=== PATIENT | male | born 1935 | race Caucasian/White ===

== ENCOUNTER 2024-03-27 13:22 | Outpatient (CLI) | payer MEDICARE, OTHER, SELFPAY ==
[2024-03-27 21:05] LABS: Prothrombin Time 24.3 Seconds (11.1-14.7)
== END 2024-03-27 13:23 | disposition home or self-care (01) ==
LOC: ANHGOSHLAB 13:24
PROVIDERS: PCP Family Medicine; Visit Provider Family Medicine
DX: Z79.01 Long term (current) use of anticoagulants (principal)
CPT/HCPCS: 36415; 85610

== ENCOUNTER 2024-07-16 14:37 | Inpatient (IN) | payer MEDICARE, OTHER, SELFPAY ==
[2024-07-16] VITALS (37 sets, daily range): BP systolic 73–117; BP diastolic 54–98; PULSE 80–148; RESP 11–33; TEMP 36.9; O2SAT 79–100
--- NOTE | ~2024-07-16 | US_ITS ---
EXAMINATION: US venous doppler [facility] DATE: 07/16/2024 15:57 INDICATION: Lower limb swelling. TECHNIQUE: Grayscale ultrasound images without and with compression and Doppler ultrasound images of the bilateral lower extremity veins were obtained. COMPARISON: None. FINDINGS: The visualized portions of right common femoral vein, profunda (deep) femoral vein, femoral vein, pop liteal vein, posterior tibial veins, peroneal veins, gastrocnemius vein and greater saphenous vein ou tflow are patent. The visualized portions of left common femoral vein, profunda femoral vein, femoral vein, popliteal v ein, posterior tibial veins, peroneal veins, gastrocnemius vein and greater saphenous vein outflow ar e patent. IMPRESSION: 1. No deep venous thrombosis in either lower limb. Reviewed, dictated and finalized at location A.
--- NOTE | ~2024-07-16 | XR_ITS ---
XR chest 1V portable 07/16/2024 15:08 Indication: Shortness of breath. Atrial fibrillation. Procedure: AP portable chest Comparison: No prior studies for comparison. Findings: Cardiomegaly with interstitial edema. Small pleural effusions. No pneumothorax. No acute os seous abnormality. Impression: 1: Cardiomegaly with mild interstitial edema. Reviewed, dictated and finalized at location B. Impression: 1: Cardiomegaly with mild interstitial edema.
--- NOTE | 2024-07-16 14:36 | ECG_ITS ---
Test Date: 2024-07-16 14:36:01 Measurements Intervals [place] Rate: 150 P: 0 HI: 0 QRS: -47 QRSD: 107 T: 124 QT: 298 QTc: 471 Interpretive Statements ATRIAL FLUTTER/TACHYCARDIA WITH RAPID VENTRICULAR RESPONSE LEFT ANTERIOR FASCICULAR BLOCK [QRS AXIS <= -45, QR IN I, RS IN II] POSSIBLE ANTERIOR MYOCARDIAL INFARCTION , OF INDETERMINATE AGE [30 ms Q WAVE IN V3/V4, OR R < 0.2 mV IN V4] INFERIOR MYOCARDIAL INFARCTION , OF INDETERMINATE AGE [40+ ms Q WAVE AND/OR ST/T ABNORMALITY IN II/aVF] ABNORMAL ELECTROCARDIOGRAM No previous ECG available for comparison Electronically Signed On 07-16-2024 18:03:16 CDT by Carlos Ivan M.D.
--- NOTE | 2024-07-16 14:51 | ED.ARRPALP ---
HPI - Arrhythmia/Palpitations General Chief Complaint: Arrhythmia/Palpitations Stated Complaint: afib rvr Time Seen by Provider: 07/16/24 14:41 History of Present Illness HPI narrative: This is an 89-year-old male with a past medical history significant for paroxysmal atrial fibrillation on warfarin, CHF and hyperlipidemia as well as previous prostate cancer. Today patient presents to the emergency department at the request of his primary care provider for concerns of dyspnea and atrial fibrillation with rapid ventricular response. Patient only takes warfarin does not have any kind of calcium channel or beta christopher medications on his regimen. Patient states that he would not have come to the ER if he was not instructed to. He states he does not feel chest pain or any kind of shortness of breath but was reporting shortness of breath at the office today. They initially placed on oxygen but he is saturating well on room air. As any headache, vision changes, nausea, vomiting, abdominal pain, back pain. He states his legs are swollen but states that they appear somewhat normal to him. No history of DVT or PE to his knowledge. Was otherwise in his normal state of health. No recent medication changes but on review of the EMR was taken off of metoprolol in March. Related Data Home Medications Medication Instructions Recorded Confirmed warfarin 3 mg tablet 3 mg PO HS 07/16/24 07/16/24 Allergies Allergy/AdvReac Type Severity Reaction Status Date / Time No Known Allergies Allergy Verified 07/16/24 19:17 Review of Systems Review of Systems: As reviewed above in HPI [facility] Surgical History Surgical History H/O radical prostatectomy 2009 Hx of hernia repair bilat inguinal Family History Family History Father Cerebrovascular accident Sibling Family history of lung cancer, Onset Age: 61 Family history of malignant neoplasm of brain, Onset Age: 80 Social History Social History Smoking status: Former smoker Alcohol intake: never Substance use: never Substance use type: does not use Lack of Transportation: No Lack of Food: Never True Current Housing: I Have Housing Concerned About Future Housing: No Difficulty Paying Gas/Electric Bills: No Difficulty Paying for Meds: No Currently Unemployed: No Education: High School Diploma/GED Difficulty w/ Childcare or Family Care: No Exam Narrative: GENERAL: Well appearing not in acute distress, conversing in full sentences HEAD: [Normocephalic, atraumatic.] EYES: [PERRLA and EOMI.] ENT: Nares clear, no rhinorrhea or epistaxis. Mucous membranes moist. NECK: Supple. CHEST: Some rhonchi appreciated with rales on auscultation but no wheezing, respiratory distress or accessory muscle use HEART: [Regular rate and rhythm]. No murmur heard. [Normal peripheral pulses.] ABDOMEN: [Soft, nondistended], [nontender], [No rigidity or guarding] EXTREMITIES: Normal range of motion. Anasarca to the bilateral lower extremities, pitting SKIN: Warm, dry, no rash. NEURO: [No focal deficits]. Alert and oriented [x3.] PSYCH: [Normal mood and affect.] Course Vital Signs Vital signs: Vital Signs Temperature 36.9 C 07/16/24 14:26 Pulse Rate 148 H 07/16/24 14:26 Respiratory Rate 30 H 07/16/24 14:26 Blood Pressure 104/89 07/16/24 14:26 Pulse Oximetry 93 07/16/24 14:26 Oxygen Delivery Room Air 07/16/24 14:26 Temperature 36.9 C 07/16/24 14:26 Pulse Rate 129 H 07/16/24 18:50 Respiratory Rate 22 H 07/16/24 18:50 Blood Pressure 103/82 07/16/24 18:50 Pulse Oximetry 95 07/16/24 18:50 Oxygen Delivery Room Air 07/16/24 19:13 Oxygen Flow Rate 2 07/16/24 15:34 MDM - Arrhythmia/Palpitations MDM Narrative Medical decision making narrative: This is an 89-year-old male with a history of paroxysmal atrial fibrillation on warfarin but no rate controlling medications. He also has a history of CHF and no medications such as diuretics on review of the EMR. He was sent in by his primary care provider today for difficulty breathing and atrial fibrillation with rapid ventricular response. On arrival patient is resting comfortably on room air but his vitals do show a heart rate between 120-160. It appears to be atrial fibrillation on the monitor with rapid ventricular response. His blood pressure is reassuring and holding and 104/89. He denies any chest pain shortness a breath presently and has no other somatic symptoms at this time besides leg swelling. He states he does not take any diuretics and anything aside from warfarin. He was previously on a beta-christopher on review of the Mar in March. No history of DVT or PE to his knowledge. Given patient's atrial fibrillation with rapid ventricular response and that his blood pressures falling appropriately I believe he can be safely rate controlled with IV diltiazem followed by a infusion rate to control it. EKG is obtained and revealed atrial fibrillation RVR with no ST segment elevations or depressions concerning for acute ischemia. He has bilateral leg swelling but appears to have more swelling on the right side compared to the left. He appears fluid overloaded with his edematous legs, rales on exam and history of CHF. Find his atrial fibrillation RVR is unclear but could be secondary to myocardial stretching from fluid overload, electrolyte derangements, ACS or infectious process. Less likely thrombotic process however we did obtain a D-dimer and ultrasound of his legs. CBC, BMP, LFTs, chest x-ray, EKG and serial troponins were ordered. Diltiazem bolus at approximately 0.25 milligrams/kilogram was ordered followed by drip starting at 5. Workup revealed no leukocytosis or anemia. PT and INR elevated however patient is on warfarin therapy. Electrolyte panel largely within normal limits but a small anion gap of 15 without significant acidosis. Creatinine normal at 1.10. Some BUN elevations of 47 indicative of a minor KYLE or prerenal azotemia. Initial troponin was elevated 0.121, repeat pending. EKG shows no ischemia and this is likely demand ischemia from rapid heart rate and fluid overload. Will trend. Patient has no chest pain at this time. D-dimer is negative, venous Doppler studies were independently reviewed and also negative for acute DVT. Chest x-ray shows fluid overload and cardiomegaly. Patient was provided Lasix for diuretic therapy as I believe his in a CHF exacerbation given his historical features and physical exam findings and this is likely was attributing to his atrial fibrillation being in RVR at this time. He is doing well on diltiazem drip with reassessment showing that his heart rate is being controlled under 110 but still irregular in rhythm. Blood pressure tolerating in the low 100s. He is on room air saturating 95%. At this time patient will benefit from admission to the hospital for continued diuresis and to be evaluated by Cardiology to start him on appropriate medications for his atrial fibrillation and CHF. I discussed the case with the hospitalist FARIHA who accepted the admission at this time to the IMU. Patient and family were agreeable to admission as well. Medical Records Attestation: I reviewed the patient's medical records. Lab Data Attestation: I reviewed the patient's lab results. 07/16/24 14:42 07/16/24 14:42 Labs: Lab Results 07/16/24 07/16/24 07/16/24 Range/Units 14:42 14:59 18:53 WBC 7.7 (4.5-10.0) K/mm3 RBC 5.08 (4.6-6.20) M/mm3 Hgb 17.2 (14.0-18.0) g/dL Hct 51.3 (42.0-52.0) % MCV 101.0 H (80-100) fl MCH 33.9 (26-34) pg MCHC 33.5 (32-36) g/dl RDW 15.2 H (11.5-14.5) % Plt Count 156 (150-375) k/mm3 MPV 12.1 H (7.4-10.4) fl Immature Gran % (Auto) 0.4 (0-0.5) % Neut % (Auto) 79.7 H (45.5-73.1) % Lymph % (Auto) 8.9 L (18.3-44.2) % [place] % (Auto) 10.5 H (2.6-8.5) % Eos % (Auto) 0.0 (0-4.4) % Baso % (Auto) 0.5 (0.2-1.2) % Lymph # (Auto) 0.69 L (0.9-3.2) K/mm3 [place] # (Auto) 0.8 H (0.1-0.6) K/mm3 Eos # (Auto) 0.0 (0-0.3) K/mm3 Baso # (Auto) 0.0 (0.0-0.1) K/mm3 Abs Immat Gran (auto) 0.03 (0.00-0.031) K/mm3 Absolute Neuts (auto) 6.1 (1.3-6.7) K/mm3 Absolute Nucleated RBC 0.000 (0.0-0.012) K/mm3 Nucleated RBC % 0.0 (0.0-0.2) % PT 38.8 H (11.1-14.7) Seconds INR 3.9 APTT 42.8 H (22.3-36.8) Seconds D-Dimer 0.33 (<0.48) ug/mL Sodium 136 L (137-145) mmol/L Potassium 4.8 (3.4-5.0) mmol/L Chloride 100 (98-107) mmol/L Carbon Dioxide 21 L (22-30) mmol/L Anion Gap 15 H (4-12) mmol/L BUN 47 H (9-20) mg/dL Creatinine 1.10 (0.7-1.3) mg/dL Estim Creat Clear Calc 41 ml/min Estimated GFR > 60 (59 - ) Glucose 155 H (65-110) mg/dL Calcium 8.8 (8.4-10.2) mg/dL Total Bilirubin 2.8 H (0.2-1.3) mg/dL AST 47 (17-59) U/L ALT 30 (6-50) U/L Alkaline Phosphatase 77 (38-126) U/L Troponin I 0.121 H* Pending (0.000-0.034) ng/mL Total Protein 7.0 (6.3-8.2) g/dL Albumin 4.0 (3.5-5.1) g/dL Lipase 164 (23-300) U/L Influenza A (RT-PCR) Negative (Negative) Influenza B (RT-PCR) Negative (Negative) SARS-CoV-2 RNA (RT-PCR) Negative (Negative) Imaging Data Attestation: I personally reviewed and interpreted this imaging study as follows: Radiologist's impression: Impressions Chest X-Ray 07/16/24 15:18 Impression: 1: Cardiomegaly with mild interstitial edema. Venous Doppler Study 07/16/24 15:59 IMPRESSION: 1. No deep venous thrombosis in either lower limb. Critical Care Time Critical Care Time Critical Care Time: Yes Total Critical Care Time: 35 Discharge Plan Discharge Clinical Impression: Atrial fibrillation with rapid ventricular response, Acute exacerbation of CHF (congestive heart failure) Patient Disposition: Still a Patient Condition: Stable Prescriptions: No Action warfarin 3 mg tablet 3 mg PO HS Follow-up/Referrals: Yaritza Thayer MD [Primary Care Provider] -
[2024-07-16 14:52] LABS: Basophils Percent Auto 0.5 % (0.2-1.2); Hematocrit 51.3 % (42.0-52.0); Hemoglobin 17.2 g/dL (14.0-18.0); Immature Granulocyte Absolute 0.03 K/mm3 (0.00-0.031); Immature Granulocyte Percent A 0.4 % (0-0.5); Lymphocytes Absolute Auto 0.69 K/mm3 (0.9-3.2); Lymphocytes Percent Auto 8.9 % (18.3-44.2); Mean Corpuscular HGB Conc 33.5 g/dl (32-36); Mean Corpuscular Hemoglobin 33.9 pg (26-34); Mean Platelet Volume 12.1 fl (7.4-10.4); Monocytes Absolute Auto 0.8 K/mm3 (0.1-0.6); Monocytes Percent Auto 10.5 % (2.6-8.5); Neutrophils Absolute Auto 6.1 K/mm3 (1.3-6.7); Neutrophils Percent Auto 79.7 % (45.5-73.1); Platelet Count Result 156 k/mm3 (150-375); Red Blood Count 5.08 M/mm3 (4.6-6.20); Red Cell Distribution Width 15.2 % (11.5-14.5); White Blood Count 7.7 K/mm3 (4.5-10.0)
--- NOTE | 2024-07-16 14:58 | PC.NURSE ---
Dr. Little made aware of pt blood pressure: 95/75. He states to continue medication administration of IVP diltiazem and lasix stat. He states to hold the drip of the diltiazem.
[2024-07-16 15:00] LABS: Alanine Aminotransferase 30 U/L (6-50); Alkaline Phosphatase 77 U/L (38-126); Anion Gap 15 mmol/L (4-12); Aspartate Amino Transferase 47 U/L (17-59); Bilirubin,Total 2.8 mg/dL (0.2-1.3); Blood Urea Nitrogen 47 mg/dL (9-20); Calcium 8.8 mg/dL (8.4-10.2); Carbon Dioxide 21 mmol/L (22-30); Chloride 100 mmol/L (98-107); Estimated CRCL calculation 41 ml/min; Estimated Glomerular Filt Rate > 60; Glucose 155 mg/dL (65-110); Lipase 164 U/L (23-300); Potassium 4.8 mmol/L (3.4-5.0); Sodium 136 mmol/L (137-145)
[2024-07-16] MEDS: dilTIAZem HCl INJ 25 MG/5 ML VIAL 20 MG IV PUSH (15:00)
[2024-07-16] MEDS: FUROSEMIDE INJ 40 MG/4 ML VIAL IV PUSH (15:00)
[2024-07-16] MEDS: dilTIAZem 100 MG/100 ML 100 MG/100 ML BAG IV CONT (15:03)
[2024-07-16 15:08] LABS: INR 3.9; Partial Thromboplastin Time 42.8 Seconds (22.3-36.8); Prothrombin Time 38.8 Seconds (11.1-14.7)
[2024-07-16 15:13] LABS: Troponin I 0.121 ng/mL (0.000-0.034)
[2024-07-16 15:24] LABS: D Dimer 0.33 ug/mL (<0.48)
--- NOTE | 2024-07-16 15:34 | PC.NURSE ---
This RN entered pt room with US at bedside. Pt blood pressure 70/50 and oxygen saturation fluctuating between 88-96%. Diltiazem drip paused. Pt placed on 2L NC. made aware.
[2024-07-16 15:58] LABS: Influenza A QL RT-PCR Negative (Negative); Influenza B QL RT-PCR Negative (Negative); SARS-CoV-2 RNA PCR Negative (Negative)
--- NOTE | 2024-07-16 18:48 | ECG_ITS ---
Test Date: 2024-07-16 19:10:26 Measurements Intervals [place] Rate: 136 P: 0 DE: 0 QRS: -44 QRSD: 108 T: 120 QT: 302 QTc: 454 Interpretive Statements ATRIAL FLUTTER/TACHYCARDIA WITH RAPID VENTRICULAR RESPONSE POSSIBLE ANTERIOR MYOCARDIAL INFARCTION , OF INDETERMINATE AGE [30 ms Q WAVE IN V3/V4, OR R < 0.2 mV IN V4] INFERIOR MYOCARDIAL INFARCTION , OF INDETERMINATE AGE [40+ ms Q WAVE AND/OR ST/T ABNORMALITY IN II/aVF] ABNORMAL ECG Compared to ECG 07/16/2024 14:36:01 NO DIFFERENCE Electronically Signed On 07-18-2024 12:52:27 CDT by Carlos Ivan M.D.
--- NOTE | 2024-07-16 20:08 | P.HP_ITS ---
H&P: HPI History of Present Illness Date/Time: 07/16/24 20:08 Chief Complaint: AFib RVR Narrative: This is an 89-year-old male with a significant past medical history of AFib, prostate cancer, CHF, hyperlipidemia who presents to the hospital with complaints of shortness of breath and AFib with RVR which was found by his primary care physician. According to the family patient has been weak and fatigued over the last 2-3 weeks which became worse over the weekend and reported him to have shallow breathing and easily fatigued with exertion. Patient denies any sick contacts. He denies any fever, chills, nausea, vomiting, diarrhea, abdominal pain, chest pain. He only reports shortness of breath and fatigue. He does state that he is always in AFib and is only been taking Coumadin. He does not take anything for rate control. Workup in the hospital included a chest x-ray which showed cardiomegaly with mild interstitial edema. Venous Doppler study which was negative for DVT and bilateral lower extremities. Initial labs included a normal white blood cell count of 7.7, INR 3.9, D-dimer was negative at 0.33, sodium 136, bicarb 21, total bili 2.8, troponin 0.121 with a repeat pending, lipase was normal. Patient was negative for influenza a and B and RSV. Initial EKG showed atrial flutter with rapid ventricular response with a rate of 150. He was given 20 mg IV push Cardizem and started on IV Cardizem drip while in the ED. He was also given 324 mg of aspirin and Lasix 40 mg IV push. Review of Systems Review of Systems: All systems reviewed & are unremarkable except as noted in HPI and below Constitutional: Constitutional: Reports as per HPI and Reports no additional constitutional complaints Eyes: Eyes: Reports as per HPI and Reports no additional eye complaints ENT: Reports system reviewed and no additional complaints, except as documented and Reports as per HPI Cardiovascular: Cardiovascular: Reports as per HPI and Reports no additional cardiovascular complaints Respiratory: Respiratory: Reports as per HPI and Reports no additional respiratory complaints Gastrointestinal: Gastrointestinal: Reports as per HPI and Reports no additional gastrointestinal complaints Genitourinary: Genitourinary: Reports no additional male genitourinary complaints and Reports as per HPI Musculoskeletal: Musculoskeletal: Reports no additional musculoskeletal complaints and Reports as per HPI Integumentary/Breasts: Skin/Breast: Reports system reviewed and no additional complaints, except as docu and Reports as per HPI Neurologic: Reports system reviewed and no additional complaints, except as documented and Reports as per HPI Psychiatric: Psychiatric: Reports no additional psychiatric complaints and Reports as per HPI [facility] Past Medical History Medical History CHF (congestive heart failure) Surgical History Surgical History H/O radical prostatectomy 2009 Hx of hernia repair bilat inguinal Family History Family History Father Cerebrovascular accident Sibling Family history of lung cancer, Onset Age: 61 Family history of malignant neoplasm of brain, Onset Age: 80 Social History Social History Smoking status: Former smoker Alcohol intake: never Substance use: never Substance use type: does not use Lack of Transportation: No Lack of Food: Never True Current Housing: I Have Housing Concerned About Future Housing: No Difficulty Paying Gas/Electric Bills: No Difficulty Paying for Meds: No Currently Unemployed: No Education: High School Diploma/GED Difficulty w/ Childcare or Family Care: No Meds Home Medications and Allergies Home Medications Medication Instructions Recorded Confirmed Type warfarin 3 mg tablet 3 mg PO HS 07/16/24 07/16/24 History Allergies Allergy/AdvReac Type Severity Reaction Status Date / Time No Known Allergies Allergy Verified 07/16/24 19:17 Vital Signs Vital Signs - 24 hr 07/16/24 14:26 07/16/24 14:41 07/16/24 15:03 Temperature 98.4 F Pulse Rate 148 H 127 H Respiratory Rate 30 H Blood Pressure 104/89 106/87 Pulse Oximetry 93 95 Oxygen Delivery Room Air Room Air Oxygen Flow Rate 07/16/24 14:45 07/16/24 15:02 07/16/24 15:30 Temperature Pulse Rate 123 H 135 H 97 Respiratory Rate 26 H 28 H Blood Pressure 95/75 L 106/87 73/55 L Pulse Oximetry 97 95 Oxygen Delivery Oxygen Flow Rate 07/16/24 15:15 07/16/24 15:34 07/16/24 15:25 Temperature Pulse Rate 104 H 105 H Respiratory Rate 24 H 26 H Blood Pressure 79/58 L 73/54 L Pulse Oximetry 95 97 94 Oxygen Delivery Nasal Cannula Oxygen Flow Rate 2 07/16/24 15:30 07/16/24 15:41 07/16/24 15:41 Temperature Pulse Rate 102 H 102 H 80 Respiratory Rate 30 H 19 30 H Blood Pressure 85/72 L 101/72 Pulse Oximetry 94 99 97 Oxygen Delivery Oxygen Flow Rate 07/16/24 15:21 07/16/24 15:26 07/16/24 15:29 Temperature Pulse Rate 118 H 119 H 116 H Respiratory Rate 27 H 27 H 20 Blood Pressure 73/54 L 85/72 L Pulse Oximetry 91 87 L 79 L Oxygen Delivery Oxygen Flow Rate 07/16/24 15:30 07/16/24 15:45 07/16/24 15:46 Temperature Pulse Rate 86 107 H 83 Respiratory Rate 33 H 33 H 27 H Blood Pressure 111/91 H Pulse Oximetry 95 93 100 Oxygen Delivery Oxygen Flow Rate 07/16/24 16:00 07/16/24 16:01 07/16/24 16:15 Temperature Pulse Rate 101 H 102 H 101 H Respiratory Rate 29 H 27 H 28 H Blood Pressure 99/80 L Pulse Oximetry 98 100 99 Oxygen Delivery Oxygen Flow Rate 07/16/24 16:16 07/16/24 16:17 07/16/24 16:46 Temperature Pulse Rate 103 H 100 113 H Respiratory Rate 31 H 13 21 H Blood Pressure 104/67 97/84 L Pulse Oximetry 96 100 95 Oxygen Delivery Oxygen Flow Rate 07/16/24 17:24 07/16/24 17:31 07/16/24 18:15 Temperature Pulse Rate 98 117 H 109 H Respiratory Rate 14 22 H 27 H Blood Pressure 97/81 L Pulse Oximetry 93 93 98 Oxygen Delivery Oxygen Flow Rate 07/16/24 18:16 07/16/24 18:50 07/16/24 19:13 Temperature Pulse Rate 124 H 129 H Respiratory Rate 22 H 22 H Blood Pressure 110/86 103/82 Pulse Oximetry 94 95 Oxygen Delivery Room Air Oxygen Flow Rate Exam Narrative: General: Fatigued appearance, well nourished Head: atraumatic, no encephalopathy Eyes: EOMI, PERRLA, sclera clear ENT: moist mucous membranes, nasal passages clear Neck: supple, no JVD, no adenopathy, trachea midline Cardiac: Normal S1 and S2. AFib with RVR, No murmur, gallops or friction rubs, peripheral pulses intact. Respiratory: Slightly coarse, crackles in the bases, no adventitious lung sounds, currently on room air Gastrointestinal: soft, non-distended, non-tender, normoactive bowel sounds. Anasarca present : voiding without difficulty. Extremities: moves all extremities well, 4+ pitting edema to bilateral lower extremities good ROM, strength 5/5 Skin: clean, dry, intact. No wounds or lesions. Neuro: Alert and oriented x4, cranial nerves intact, no neuro deficits. Psych: normal mood, normal affect, interactive H&P: Results Labs Labs: Short CBC 07/16/24 Range/Units 14:42 WBC 7.7 (4.5-10.0) K/mm3 Hgb 17.2 (14.0-18.0) g/dL Hct 51.3 (42.0-52.0) % Plt Count 156 (150-375) k/mm3 BMP 07/16/24 14:42 Sodium 136 L Potassium 4.8 Chloride 100 Carbon Dioxide 21 L BUN 47 H Creatinine 1.10 Glucose 155 H Calcium 8.8 Cardiac Enzymes 07/16/24 Range/Units 14:42 Troponin I 0.121 H* (0.000-0.034) ng/mL Liver Function 07/16/24 Range/Units 14:42 Total Bilirubin 2.8 H (0.2-1.3) mg/dL AST 47 (17-59) U/L ALT 30 (6-50) U/L Alkaline Phosphatase 77 (38-126) U/L Albumin 4.0 (3.5-5.1) g/dL Imaging Venous Doppler study: Radiologist's impression: EXAMINATION: US venous doppler [facility] DATE: 07/16/2024 15:57 INDICATION: Lower limb swelling. TECHNIQUE: Grayscale ultrasound images without and with compression and Doppler ultrasound images of the bilateral lower extremity veins were obtained. COMPARISON: None. FINDINGS: The visualized portions of right common femoral vein, profunda (deep) femoral vein, femoral vein, popliteal vein, posterior tibial veins, peroneal veins, gastrocnemius vein and greater saphenous vein outflow are patent. The visualized portions of left common femoral vein, profunda femoral vein, femoral vein, popliteal vein, posterior tibial veins, peroneal veins, gastrocnemius vein and greater saphenous vein outflow are patent. IMPRESSION: 1. No deep venous thrombosis in either lower limb. Reviewed, dictated and finalized at location A. Chest x-ray: Radiologist's impression: XR chest 1V portable 07/16/2024 15:08 Indication: Shortness of breath. Atrial fibrillation. Procedure: AP portable chest Comparison: No prior studies for comparison. Findings: Cardiomegaly with interstitial edema. Small pleural effusions. No pneumothorax. No acute osseous abnormality. Impression: 1: Cardiomegaly with mild interstitial edema. Reviewed, dictated and finalized at location B. Assessment and Plan Assessment and plan (1) Acute exacerbation of CHF (congestive heart failure): Code(s): I50.9 - Heart failure, unspecified Status: Acute Assessment and Plan: 07/16/24: * Patient came in with shortness of breath, AFib RVR, 4+ pitting edema, anasarca, and fatigue * He was given 40 mg IV push Lasix while in the ED * Cardiology consulted * Obtain echocardiogram * Will need further diuresis with Lasix * Venous Doppler study negative for DVT * Chest x-ray showing cardiomegaly with mild interstitial edema * Strict intake and output * Fluid restriction * Heart healthy diet * Daily weight (2) Atrial fibrillation with rapid ventricular response: Code(s): I48.91 - Unspecified atrial fibrillation Status: Acute Assessment and Plan: 07/16/24: * EKG showing AFib/flutter with a rate of 150 on admission * Patient was given 20 mg IV push Cardizem and started on Cardizem drip however Cardizem drip was discontinued due to low blood pressures * Patient normally is always in AFib and only takes Coumadin at home, no rate control medication * Will give a 1 time dose of digoxin 125 mcg IV push now for rate control considering blood pressures are running soft due to Cardizem and further need for diuresis * Cardiology consulted * Continue Coumadin * Check INR daily (3) Elevated troponin: Code(s): R79.89 - Other specified abnormal findings of blood chemistry Status: Acute Assessment and Plan: 07/16/24: * Initial troponin 0.121> 0.157 * Likely demand ischemia from fluid overload (4) Weakness: Code(s): R53.1 - Weakness Status: Acute Assessment and Plan: 07/16/24: * PT and OT ordered Quality VTE Prophylaxis VTE prophylaxis: pharmacologic ordered Hospitalist MIPS Advance Care Plan I have confirmed that the patient's Advanced Care Plan is present, code status is documented, or surrogate decision maker is listed in patient medical record.: Yes Medication Reconciliation I have utilized all available resources to obtain, update and review the p atients current medications (includes all prescriptions, OTC, herbals, cannabis, and nutritional supplements).: Yes
[2024-07-16 20:28] LABS: Troponin I 0.157 ng/mL (0.000-0.034)
[2024-07-16] MEDS: DIGOXIN INJ 250 MCG/ML 2 ML AMP (*BKC) 125 MCG IV PUSH (20:59)
[2024-07-16 21:05] LABS: NT Pro B Type Natriuretic Pept 20200 pg/mL (19.9-100)
[2024-07-17] VITALS (29 sets, daily range): BP systolic 92–128; BP diastolic 14–89; PULSE 96–146; RESP 18–25; TEMP 35.6–36.6; O2SAT 93–99; BMI 27.9
--- NOTE | 2024-07-17 00:29 | ADMGEN ---
This patient, Juanito Sauceda, was admitted to IMU Room 214-01. Patient/family oriented to hospital policies and general routines including ID bracelet, bed and alarms, visiting hours, pain management, procedures, bathroom and other care routines, personal items, smoking policy, room service/diet, and visiting hours. Information on how to activate the Rapid Response Team has been discussed. Patient/Family are encouraged to report perceived risks to care and to ask questions if they do not understand what they are told or what they should do. Patient arrived to the floor at 0015.
[2024-07-17 00:31] LABS: Troponin I 0.153 ng/mL (0.000-0.034)
[2024-07-17] MEDS: DIGOXIN INJ 250 MCG/ML 2 ML AMP (*BKC) 125 MCG IV PUSH (04:46)
[2024-07-17 04:51] LABS: Basophils Percent Auto 0.5 % (0.2-1.2); Eosinophils Absolute Auto 0.1 K/mm3 (0-0.3); Eosinophils Percent Auto 0.6 % (0-4.4); Hematocrit 49.6 % (42.0-52.0); Hemoglobin 16.2 g/dL (14.0-18.0); Immature Granulocyte Absolute 0.04 K/mm3 (0.00-0.031); Immature Granulocyte Percent A 0.5 % (0-0.5); Lymphocytes Absolute Auto 0.95 K/mm3 (0.9-3.2); Lymphocytes Percent Auto 11.2 % (18.3-44.2); Mean Corpuscular HGB Conc 32.7 g/dl (32-36); Mean Corpuscular Hemoglobin 33.5 pg (26-34); Mean Corpuscular Volume 102.7 fl (80-100); Mean Platelet Volume 12.1 fl (7.4-10.4); Monocytes Percent Auto 11.9 % (2.6-8.5); Neutrophils Absolute Auto 6.4 K/mm3 (1.3-6.7); Neutrophils Percent Auto 75.3 % (45.5-73.1); Platelet Count Result 127 k/mm3 (150-375); Red Blood Count 4.83 M/mm3 (4.6-6.20); Red Cell Distribution Width 15.1 % (11.5-14.5); White Blood Count 8.5 K/mm3 (4.5-10.0)
[2024-07-17 05:02] LABS: Alanine Aminotransferase 28 U/L (6-50); Albumin Level 3.4 g/dL (3.5-5.1); Alkaline Phosphatase 71 U/L (38-126); Anion Gap 12 mmol/L (4-12); Aspartate Amino Transferase 45 U/L (17-59); Bilirubin,Total 2.3 mg/dL (0.2-1.3); Blood Urea Nitrogen 46 mg/dL (9-20); Calcium 8.4 mg/dL (8.4-10.2); Carbon Dioxide 25 mmol/L (22-30); Chloride 100 mmol/L (98-107); Estimated CRCL calculation 45 ml/min; Estimated Glomerular Filt Rate > 60; Glucose 104 mg/dL (65-110); Magnesium 2.1 mg/dL (1.6-2.3); Potassium 4.2 mmol/L (3.4-5.0); Prothrombin Time 32.2 Seconds (11.1-14.7); Sodium 137 mmol/L (137-145)
--- NOTE | 2024-07-17 08:13 | PC.NURSE ---
0750- [facility], aware of consult. RN also notified of patient's heart rate sustaining in the 140s. No new orders. to evaluate.
--- NOTE | 2024-07-17 08:14 | PM.CNCAR ---
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 He does have significant lower extremity edema but otherwise no physical complaints attributable to his arrhythmia. We do not have any specific information about how long he has been in atrial flutter however it is unlikely to have been going on chronically given his presentation. I believe we should be trying to get him back in to sinus rhythm. Accordingly I am going to start intravenous amiodarone a loading dose and intravenous infusion this morning. Anticipate having to reduce his warfarin dosage given amiodarone/warfarin interaction. We will follow him with you and I told the patient if he does not convert with amiodarone DC cardioversion will need to be recommended/considered. He is not hemodynamically unstable and does not have to be cardioverted urgently. Carlos Ivan MD [facility] History of Present Illness History of Present Illness Consult date/time: 07/17/24 08:14 Reason For Visit: Atrial fibrillation with RVR, CHF exac Narrative: this is an 89-year-old man I am seeing this morning at the request of the hospitalist because of atrial flutter with rapid ventricular response. The patient is unknown to me prior to this encounter and is not a very good historian regarding his medical history or problems. He says he went to the primary care physician yesterday for a routinely scheduled appointment was found to be tachycardic and was sent to the emergency room for evaluation. His electrocardiogram shows atrial flutter with two-to-one conduction with a heart rate 140-150. He was not aware of tachycardia or palpitations he denies any sense of chest pain shortness of breath orthopnea or PND. He was found on exam to have lower extremity edema which he says he was completely unaware of. He reportedly has a history of atrial fibrillation and is anticoagulated with warfarin with the PCP is managing that. He is not taking any other cardiac medications. His INR is therapeutic. He offers no other complaints at this time and appears to be comfortable in the IMU. According to the chart some IV diltiazem was ordered which is no longer running he was given intravenous digoxin 0.125 mg none of this had any effect on his cardiac rhythm and I am asked to see him today in consultation. Review of Systems Review of Systems: ROS unobtainable: Yes unobtainable due to mental status [facility] Past Medical History Medical History CHF (congestive heart failure) Surgical History Surgical History H/O radical prostatectomy 2009 Hx of hernia repair bilat inguinal Family History Family History Father Cerebrovascular accident Sibling Family history of lung cancer, Onset Age: 61 Family history of malignant neoplasm of brain, Onset Age: 80 Social History Social History Smoking packs per day: 0.5 Smoking cigarettes per day: 10.0 Years smoked: 2 Smoking pack-years: 1.00 Smoking status: Former smoker Alcohol intake: current Drinks per week: 6 Substance use: never Substance use type: does not use Do You Feel Safe in your Home?: Yes Lack of Transportation: No Lack of Food: Never True Current Housing: I Have Housing Concerned About Future Housing: No Difficulty Paying Gas/Electric Bills: No Difficulty Paying for Meds: No Currently Unemployed: No Education: High School Diploma/GED Difficulty w/ Childcare or Family Care: No Spiritual care concerns: No Meds Home Medications and Allergies Home Medications Medication Instructions Recorded Confirmed Type warfarin 3 mg tablet 3 mg PO HS 07/16/24 07/16/24 History Allergies Allergy/AdvReac Type Severity Reaction Status Date / Time No Known Allergies Allergy Verified 07/16/24 19:17 Vital Signs Vital Signs - 24 hr 07/16/24 14:26 07/16/24 14:41 07/16/24 15:03 Temperature 36.9 C Pulse Rate 148 H 127 H Respiratory Rate 30 H Blood Pressure 104/89 106/87 Pulse Oximetry 93 95 Oxygen Delivery Room Air Room Air Oxygen Flow Rate 07/16/24 14:45 07/16/24 15:02 07/16/24 15:30 Temperature Pulse Rate 123 H 135 H 97 Respiratory Rate 26 H 28 H Blood Pressure 95/75 L 106/87 73/55 L Pulse Oximetry 97 95 Oxygen Delivery Oxygen Flow Rate 07/16/24 15:15 07/16/24 15:34 07/16/24 15:25 Temperature Pulse Rate 104 H 105 H Respiratory Rate 24 H 26 H Blood Pressure 79/58 L 73/54 L Pulse Oximetry 95 97 94 Oxygen Delivery Nasal Cannula Oxygen Flow Rate 2 07/16/24 15:30 07/16/24 15:41 07/16/24 15:41 Temperature Pulse Rate 102 H 102 H 80 Respiratory Rate 30 H 19 30 H Blood Pressure 85/72 L 101/72 Pulse Oximetry 94 99 97 Oxygen Delivery Oxygen Flow Rate 07/16/24 15:21 07/16/24 15:26 07/16/24 15:29 Temperature Pulse Rate 118 H 119 H 116 H Respiratory Rate 27 H 27 H 20 Blood Pressure 73/54 L 85/72 L Pulse Oximetry 91 87 L 79 L Oxygen Delivery Oxygen Flow Rate 07/16/24 15:30 07/16/24 15:45 07/16/24 15:46 Temperature Pulse Rate 86 107 H 83 Respiratory Rate 33 H 33 H 27 H Blood Pressure 111/91 H Pulse Oximetry 95 93 100 Oxygen Delivery Oxygen Flow Rate 07/16/24 16:00 07/16/24 16:01 07/16/24 16:15 Temperature Pulse Rate 101 H 102 H 101 H Respiratory Rate 29 H 27 H 28 H Blood Pressure 99/80 L Pulse Oximetry 98 100 99 Oxygen Delivery Oxygen Flow Rate 07/16/24 16:16 07/16/24 16:17 07/16/24 16:46 Temperature Pulse Rate 103 H 100 113 H Respiratory Rate 31 H 13 21 H Blood Pressure 104/67 97/84 L Pulse Oximetry 96 100 95 Oxygen Delivery Oxygen Flow Rate 07/16/24 17:24 07/16/24 17:31 07/16/24 18:15 Temperature Pulse Rate 98 117 H 109 H Respiratory Rate 14 22 H 27 H Blood Pressure 97/81 L Pulse Oximetry 93 93 98 Oxygen Delivery Oxygen Flow Rate 07/16/24 18:16 07/16/24 18:50 07/16/24 19:13 Temperature Pulse Rate 124 H 129 H Respiratory Rate 22 H 22 H Blood Pressure 110/86 103/82 Pulse Oximetry 94 95 Oxygen Delivery Room Air Oxygen Flow Rate 07/16/24 20:59 07/16/24 19:00 07/16/24 19:47 Temperature Pulse Rate 136 H 148 H 119 H Respiratory Rate 20 20 Blood Pressure 99/78 L 117/98 H Pulse Oximetry 96 96 Oxygen Delivery Oxygen Flow Rate 07/16/24 20:01 07/16/24 21:45 07/16/24 23:50 Temperature Pulse Rate 137 H 147 H 104 H Respiratory Rate 20 22 H 18 Blood Pressure 94/82 L 98/71 L 115/80 Pulse Oximetry 98 94 99 Oxygen Delivery Oxygen Flow Rate 07/17/24 00:01 07/16/24 22:00 07/16/24 22:19 Temperature 36.6 C Pulse Rate 106 H 126 H 147 H Respiratory Rate 25 H 11 L 25 H Blood Pressure 100/80 Pulse Oximetry 98 97 96 Oxygen Delivery Oxygen Flow Rate 07/16/24 22:30 07/16/24 22:45 07/16/24 23:00 Temperature Pulse Rate 136 H 147 H 116 H Respiratory Rate 18 25 H 25 H Blood Pressure Pulse Oximetry 94 95 99 Oxygen Delivery Oxygen Flow Rate 07/17/24 00:15 07/17/24 02:00 07/17/24 04:00 Temperature 36.4 C 36.4 C Pulse Rate 136 H 115 H 109 H Respiratory Rate 22 H 22 H Blood Pressure 92/79 L 98/70 L Pulse Oximetry 98 98 Oxygen Delivery Oxygen Flow Rate 07/17/24 04:46 07/17/24 05:59 07/17/24 05:59 Temperature Pulse Rate 127 H Respiratory Rate Blood Pressure 97/83 L Pulse Oximetry 94 94 Oxygen Delivery Nasal Cannula Oxygen Flow Rate 2 07/17/24 04:00 07/17/24 06:00 07/17/24 07:41 Temperature 35.6 C L Pulse Rate 118 H 102 H 124 H Respiratory Rate 20 Blood Pressure 106/75 Pulse Oximetry 97 Oxygen Delivery Oxygen Flow Rate Exam Const: General: comfortable and no acute distress Other: Pleasant elderly white male appearing his stated age resting comfortably HENMT: Mouth: Yes moist mucous membranes Eyes: Sclera: sclerae normal Neck: Neck: supple and no JVD Resp: Effort & Inspection: normal respiratory effort Auscultation: clear to auscultation bilaterally Cardio: Rate: tachycardic Rhythm: regular rhythm GI: GI Palp: Yes Soft to palpation Auscultation: normal bowel sounds Skin: General skin exam: normal color Neuro: Other: alert and responsive Extrem: Other: soft and warm with moderate soft pitting edema bilaterally and symmetrically. Results Labs and Meds 07/17/24 04:36 07/17/24 04:36 Lab results: Cardiac Enzymes 07/16/24 07/16/24 07/16/24 Range/Units 14:42 19:47 23:43 AST 47 (17-59) U/L Troponin I 0.121 H* 0.157 H* D 0.153 H* (0.000-0.034) ng/mL 07/17/24 Range/Units 04:36 AST 45 (17-59) U/L Troponin I (0.000-0.034) ng/mL Coagulation 07/16/24 07/17/24 Range/Units 14:42 04:36 PT 38.8 H 32.2 H (11.1-14.7) Seconds APTT 42.8 H (22.3-36.8) Seconds CBC 07/16/24 07/17/24 Range/Units 14:42 04:36 WBC 7.7 8.5 (4.5-10.0) K/mm3 RBC 5.08 4.83 (4.6-6.20) M/mm3 Hgb 17.2 16.2 (14.0-18.0) g/dL Hct 51.3 49.6 (42.0-52.0) % Plt Count 156 127 L (150-375) k/mm3 Lymph # (Auto) 0.69 L 0.95 (0.9-3.2) K/mm3 Dickens # (Auto) 0.8 H 1.0 H (0.1-0.6) K/mm3 Eos # (Auto) 0.0 0.1 (0-0.3) K/mm3 Baso # (Auto) 0.0 0.0 (0.0-0.1) K/mm3 Comprehensive Metabolic Panel 07/16/24 07/17/24 Range/Units 14:42 04:36 Sodium 136 L 137 (137-145) mmol/L Potassium 4.8 4.2 (3.4-5.0) mmol/L Chloride 100 100 (98-107) mmol/L Carbon Dioxide 21 L 25 (22-30) mmol/L BUN 47 H 46 H (9-20) mg/dL Creatinine 1.10 1.00 (0.7-1.3) mg/dL Glucose 155 H 104 (65-110) mg/dL Calcium 8.8 8.4 (8.4-10.2) mg/dL AST 47 45 (17-59) U/L ALT 30 28 (6-50) U/L Alkaline Phosphatase 77 71 (38-126) U/L Total Protein 7.0 7.0 (6.3-8.2) g/dL Albumin 4.0 3.4 L (3.5-5.1) g/dL Intake and Output 07/16/24 07/17/24 07/17/24 23:59 07:59 15:59 Intake Total 300 Output Total 1000 Balance -700 Intake: Oral 300 Output: Urine 350 Catheter Urine 650 Coude 650 Patient Weight 07/17/24 23:59 Weight 85.9 kg
[2024-07-17] MEDS: FUROSEMIDE INJ 40 MG/4 ML VIAL IV PUSH (08:28)
[2024-07-17] MEDS: AMIODARONE 150 MG/D5W 100 ML 150 MG/100 ML BAG 600 MG IV CONT (08:38)
[2024-07-17] MEDS: AMIODARONE 360 MG/D5W 200 ML 360 MG/200 ML BAG 33.33 MG IV CONT (08:52)
[2024-07-17] MEDS: AMIODARONE 360 MG/D5W 200 ML 360 MG/200 ML BAG 16.67 MG IV CONT (14:40)
--- NOTE | 2024-07-17 19:42 | P.PNIM_ITS ---
Progress Note: A&P Assessment and Plan (1) Acute exacerbation of CHF (congestive heart failure): Code(s): I50.9 - Heart failure, unspecified Status: Acute Assessment and Plan: 07/16/24: * Patient came in with shortness of breath, AFib RVR, 4+ pitting edema, anasarca, and fatigue * He was given 40 mg IV push Lasix while in the ED * Cardiology following. * Echocardiogram pending. * Continue diuresis with Lasix * Venous Doppler study negative for DVT * Chest x-ray showing cardiomegaly with mild interstitial edema * Strict intake and output * Fluid restriction * Heart healthy diet * Daily weight (2) Atrial fibrillation with rapid ventricular response: Code(s): I48.91 - Unspecified atrial fibrillation Status: Acute Assessment and Plan: 07/16/24: * EKG showing AFib/flutter with a rate of 110's-140's currently. * Patient normally is always in AFib and only takes Coumadin at home, no rate control medication * Currently on amiodarone drip per cardiology. * Cardiology following. * Continue Coumadin * Check INR daily (3) Elevated troponin: Code(s): R79.89 - Other specified abnormal findings of blood chemistry Status: Acute Assessment and Plan: 07/16/24: * Initial troponin 0.121> 0.157 * Likely demand ischemia from fluid overload. * Continue to trend. * Further w/u per subway guard. (4) Weakness: Code(s): R53.1 - Weakness Status: Acute Assessment and Plan: 07/16/24: * PT and OT eval and treatment when A-Fib controlled. Time Spent With Patient Time with patient: 25 - 35 minutes Subjective Date/time seen: 07/17/24 11:42 Interval history: Patient presented to the hospital with complaints of shortness of breath and AFib with RVR which was found by his primary care physician. Patient is being followed up by the subway guard and has been started on amiodarone drip for possible rhythm conversion. Patient will be considered for cardioversion if unable to convert on amiodarone drip. Pt currently comfortable on bedrest, denying any distressful symptoms. Review of Systems Review of Systems: All systems reviewed & are unremarkable except as noted in HPI and below Constitutional: Constitutional: Reports as per HPI and Reports no additional constitutional complaints Eyes: Eyes: Reports as per HPI and Reports no additional eye complaints ENT: Reports system reviewed and no additional complaints, except as documented and Reports as per HPI Cardiovascular: Cardiovascular: Reports as per HPI and Reports no additional cardiovascular complaints Respiratory: Respiratory: Reports as per HPI and Reports no additional respiratory complaints Gastrointestinal: Gastrointestinal: Reports as per HPI and Reports no a dditional gastrointestinal complaints Genitourinary: Genitourinary: Reports no additional male genitourinary complaints and Reports as per HPI Musculoskeletal: Musculoskeletal: Reports no additional musculoskeletal complaints and Reports as per HPI Integumentary/Breasts: Skin/Breast: Reports system reviewed and no additional complaints, except as docu and Reports as per HPI Neurologic: Reports system reviewed and no additional complaints, except as documented and Reports as per HPI Psychiatric: Psychiatric: Reports no additional psychiatric complaints and Reports as per HPI Exam Narrative: General: Generalized muscle weakness, well nourished Head: atraumatic, no encephalopathy Eyes: EOMI, PERRLA, sclera clear ENT: moist mucous membranes, nasal passages clear Neck: supple, no JVD, no adenopathy, trachea midline Cardiac: Irregularly irregular, AFib with RVR, No murmur. Respiratory: Slightly coarse, faint crackles in the bases, Gastrointestinal: soft, non-distended, non-tender, normoactive bowel sounds. Anasarca present : voiding without difficulty. Extremities: moves all extremities well, 3+ pitting edema to bilateral lower extremities good ROM, strength 4/5 Skin: clean, dry, intact. No wounds or lesions. Neuro: Alert and oriented x4, cranial nerves intact, no neuro deficits. Psych: normal mood, normal affect, interactive Objective Data Vital Signs Vital Signs: Vital Signs - 24 hr 07/16/24 20:59 07/16/24 19:47 07/16/24 20:01 Temperature Pulse Rate 136 H 119 H 137 H Respiratory Rate 20 20 Blood Pressure 117/98 H 94/82 L Pulse Oximetry 96 98 Oxygen Delivery Oxygen Flow Rate 07/16/24 21:45 07/16/24 23:50 07/17/24 00:01 Temperature 97.9 F Pulse Rate 147 H 104 H 106 H Respiratory Rate 22 H 18 25 H Blood Pressure 98/71 L 115/80 100/80 Pulse Oximetry 94 99 98 Oxygen Delivery Oxygen Flow Rate 07/16/24 22:00 07/16/24 22:19 07/16/24 22:30 Temperature Pulse Rate 126 H 147 H 136 H Respiratory Rate 11 L 25 H 18 Blood Pressure Pulse Oximetry 97 96 94 Oxygen Delivery Oxygen Flow Rate 07/16/24 22:45 07/16/24 23:00 07/17/24 00:15 Temperature 97.6 F Pulse Rate 147 H 116 H 136 H Respiratory Rate 25 H 25 H 22 H Blood Pressure 92/79 L Pulse Oximetry 95 99 98 Oxygen Delivery Oxygen Flow Rate 07/17/24 02:00 07/17/24 04:00 07/17/24 04:46 Temperature 97.6 F Pulse Rate 115 H 109 H 127 H Respiratory Rate 22 H Blood Pressure 98/70 L Pulse Oximetry 98 Oxygen Delivery Oxygen Flow Rate 07/17/24 05:59 07/17/24 05:59 07/17/24 04:00 Temperature Pulse Rate 118 H Respiratory Rate Blood Pressure 97/83 L Pulse Oximetry 94 94 Oxygen Delivery Nasal Cannula Oxygen Flow Rate 2 07/17/24 06:00 07/17/24 07:41 07/17/24 08:38 Temperature 96.0 F L Pulse Rate 102 H 124 H 135 H Respiratory Rate 20 Blood Pressure 106/75 106/75 Pulse Oximetry 97 Oxygen Delivery Oxygen Flow Rate 07/17/24 08:52 07/17/24 10:24 07/17/24 10:00 Temperature 97.3 F L Pulse Rate 124 H 103 H Respiratory Rate 20 Blood Pressure 106/75 113/78 Pulse Oximetry 96 Oxygen Delivery Room Air Oxygen Flow Rate 07/17/24 10:00 07/17/24 08:00 07/17/24 10:00 Temperature Pulse Rate 103 H 146 H 107 H Respiratory Rate Blood Pressure 113/78 Pulse Oximetry Oxygen Delivery Oxygen Flow Rate 07/17/24 11:25 07/17/24 12:00 07/17/24 14:11 Temperature 96.6 F L 96.7 F L Pulse Rate 115 H 110 H 114 H Respiratory Rate 18 18 Blood Pressure 95/14 L 113/67 Pulse Oximetry 98 97 Oxygen Delivery Oxygen Flow Rate 07/17/24 14:40 07/17/24 12:00 07/17/24 14:00 Temperature Pulse Rate 113 H 115 H 109 H Respiratory Rate Blood Pressure 113/67 95/14 L Pulse Oximetry Oxygen Delivery Oxygen Flow Rate 07/17/24 16:31 07/17/24 16:00 07/17/24 18:28 Temperature 96.4 F L 97.1 F L Pulse Rate 107 H 96 112 H Respiratory Rate 20 20 Blood Pressure 107/82 104/41 L Pulse Oximetry 97 99 Oxygen Delivery Oxygen Flow Rate 07/17/24 18:00 07/17/24 18:30 Temperature Pulse Rate 110 H 112 H Respiratory Rate Blood Pressure 104/41 L Pulse Oximetry Oxygen Delivery Oxygen Flow Rate Intake/Output Intake/Output: Intake & Output 07/14/24 07/15/24 07/16/24 07/17/24 23:59 23:59 23:59 23:59 Intake Total 2.3 1188.4 Output Total 2450 Balance 2.3 -1261.6 Meds/Results Medications: Active Medications Generic Name Dose Route Start Last Admin Trade Name Freq PRN Reason Stop Dose Admin Acetaminophen 650 mg 07/16/24 20:33 Acetaminophen 325 Mg Tablet PO Q4H PRN Mild Pain (1-3) or Fever Furosemide 40 mg 07/17/24 09:00 07/17/24 08:28 Furosemide Inj 40 Mg/4 Ml Vial IV PUSH 40 mg DAILY [facility] Administration Amiodarone HCl/Dextrose 360 mg in 200 mls @ 16.667 mls/hr 07/17/24 14:13 07/17/24 18:30 Nexterone 360 Mg/D5w 200 Ml IV CONT 0.5 mg/min .Q12H DINESH 16.67 mls/hr Infusion 0.5 MG/MIN Ondansetron HCl 4 mg 07/16/24 20:33 Ondansetron Inj 4 Mg/2 Ml Vial IV PUSH Q6H PRN Nausea And Vomiting Warfarin Sodium 3 mg 07/18/24 17:00 Warfarin (*Pbkc) 3 Mg Tablet PO DAILY@1700 [facility] Radiology Results: ITS Impressions Chest X-Ray 07/16/24 15:18 Impression: 1: Cardiomegaly with mild interstitial edema. Venous Doppler Study 07/16/24 15:59 IMPRESSION: 1. No deep venous thrombosis in either lower limb. Labs Labs: Laboratory Results - last 24 hr 07/16/24 07/16/24 07/17/24 19:47 23:43 04:36 WBC 8.5 RBC 4.83 Hgb 16.2 Hct 49.6 MCV 102.7 H MCH 33.5 MCHC 32.7 RDW 15.1 H Plt Count 127 L MPV 12.1 H Immature Gran % (Auto) 0.5 Neut % (Auto) 75.3 H Lymph % (Auto) 11.2 L [place]rack[place] % (Auto) 11.9 H Eos % (Auto) 0.6 Baso % (Auto) 0.5 Lymph # (Auto) 0.95 [place] # (Auto) 1.0 H Eos # (Auto) 0.1 Baso # (Auto) 0.0 Abs Immat Gran (auto) 0.04 H Absolute Neuts (auto) 6.4 Absolute Nucleated RBC 0.000 Nucleated RBC % 0.0 PT 32.2 H INR 3.0 Sodium 137 Potassium 4.2 Chloride 100 Carbon Dioxide 25 Anion Gap 12 BUN 46 H Creatinine 1.00 Estim Creat Clear Calc 45 Estimated GFR > 60 Glucose 104 Calcium 8.4 Magnesium 2.1 Total Bilirubin 2.3 H AST 45 ALT 28 Alkaline Phosphatase 71 Troponin I 0.157 H* D 0.153 H* NT-Pro-B Natriuret Pep 70178 H Total Protein 7.0 Albumin 3.4 L Quality VTE Prophylaxis VTE prophylaxis: pharmacologic ordered Hospitalist MIPS Advance Care Plan I have confirmed that the patient's Advanced Care Plan is present, code status is documented, or surrogate decision maker is listed in patient medical record.: Yes Medication Reconciliation I have utilized all available resources to obtain, update and review the patients current medications (includes all prescriptions, OTC, herbals, cannabis, and nutritional supplements).: Yes
[2024-07-18] VITALS (36 sets, daily range): BP systolic 94–123; BP diastolic 62–91; PULSE 70–120; RESP 12–23; TEMP 36.1–36.7; O2SAT 80–100
[2024-07-18] MEDS: AMIODARONE 360 MG/D5W 200 ML 360 MG/200 ML BAG 16.67 MG IV CONT ×2 (00:14→10:51)
[2024-07-18 04:57] LABS: Basophils Percent Auto 0.2 % (0.2-1.2); Eosinophils Percent Auto 0.2 % (0-4.4); Hematocrit 48.8 % (42.0-52.0); Hemoglobin 16.3 g/dL (14.0-18.0); Immature Granulocyte Absolute 0.05 K/mm3 (0.00-0.031); Immature Granulocyte Percent A 0.4 % (0-0.5); Lymphocytes Absolute Auto 0.75 K/mm3 (0.9-3.2); Lymphocytes Percent Auto 6.6 % (18.3-44.2); Mean Corpuscular HGB Conc 33.4 g/dl (32-36); Mean Corpuscular Hemoglobin 33.3 pg (26-34); Mean Corpuscular Volume 99.6 fl (80-100); Mean Platelet Volume 11.9 fl (7.4-10.4); Monocytes Percent Auto 8.8 % (2.6-8.5); Neutrophils Absolute Auto 9.5 K/mm3 (1.3-6.7); Neutrophils Percent Auto 83.8 % (45.5-73.1); Platelet Count Result 148 k/mm3 (150-375); Red Cell Distribution Width 14.9 % (11.5-14.5); White Blood Count 11.3 K/mm3 (4.5-10.0)
[2024-07-18 05:06] LABS: INR 2.7; Prothrombin Time 29.4 Seconds (11.1-14.7)
[2024-07-18 05:16] LABS: Alanine Aminotransferase 37 U/L (6-50); Albumin Level 3.3 g/dL (3.5-5.1); Alkaline Phosphatase 83 U/L (38-126); Anion Gap 8 mmol/L (4-12); Aspartate Amino Transferase 64 U/L (17-59); Bilirubin,Total 1.4 mg/dL (0.2-1.3); Blood Urea Nitrogen 39 mg/dL (9-20); Calcium 8.3 mg/dL (8.4-10.2); Carbon Dioxide 30 mmol/L (22-30); Chloride 99 mmol/L (98-107); Estimated CRCL calculation 50 ml/min; Estimated Glomerular Filt Rate > 60; Glucose 116 mg/dL (65-110); Potassium 3.2 mmol/L (3.4-5.0); Sodium 137 mmol/L (137-145)
[2024-07-18] MEDS: FUROSEMIDE INJ 40 MG/4 ML VIAL IV PUSH (09:33)
[2024-07-18] MEDS: POTASSIUM CHLORIDE 20 MEQ ER TABLET 40 MEQ PO (09:33)
--- NOTE | 2024-07-18 10:28 | P.PNCA_ITS ---
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 He does have significant lower extremity edema but otherwise no physical complaints attributable to his arrhythmia. * Remains in atrial fibrillation on amiodarone, but rate better controlled * Discussed an attempt to restore sinus rhythm with DCCV with patient and son at the bedside who would like to proceed with this * K+ 3.2 this morning and this has been replaced. Will repeat a BMP now * He was not NPO, but has not eaten since breakfast and has only had small sips of water, so will schedule procedure for later this afternoon * On warfarin, INR 2.7, so he does not require CECELIA Subjective Date/time seen: 07/18/24 10:28 Interval history: Cardiology follow up for atrial fibrillation He remains in atrial fibrillation on amiodarone, rate is generally controlled. He does not have any specific complaints at the time of my visit with him. Review of Systems Review of Systems: All systems reviewed & are unremarkable except as noted in HPI and below Exam Const: General: comfortable and no acute distress Other: Pleasant elderly white male appearing his stated age resting comfortably HENMT: Mouth: Yes moist mucous membranes Eyes: Sclera: sclerae normal Neck: Neck: supple and no JVD Resp: Effort & Inspection: normal respiratory effort Auscultation: clear to auscultation bilaterally Cardio: Rate: tachycardic Rhythm: abnormal rhythm irregularly irregular GI: Auscultation: normal bowel sounds Skin: General skin exam: normal color Neuro: Other: alert and responsive Extrem: Other: soft and warm with moderate soft pitting edema bilaterally and symmetrically. Objective Data Vital Signs Vital Signs: Vital Signs - 24 hr 07/17/24 11:25 07/17/24 12:00 07/17/24 14:11 Temperature 35.9 C L 35.9 C L Pulse Rate 115 H 110 H 114 H Respiratory Rate 18 18 Blood Pressure 95/14 L 113/67 Pulse Oximetry 98 97 Oxygen Delivery Oxygen Flow Rate 07/17/24 14:40 07/17/24 12:00 07/17/24 14:00 Temperature Pulse Rate 113 H 115 H 109 H Respiratory Rate Blood Pressure 113/67 95/14 L Pulse Oximetry Oxygen Delivery Oxygen Flow Rate 07/17/24 16:31 07/17/24 16:00 07/17/24 18:28 Temperature 35.8 C L 36.2 C L Pulse Rate 107 H 96 112 H Respiratory Rate 20 20 Blood Pressure 107/82 104/41 L Pulse Oximetry 97 99 Oxygen Delivery Oxygen Flow Rate 07/17/24 18:00 07/17/24 18:30 07/17/24 20:06 Temperature 36.4 C Pulse Rate 110 H 112 H 112 H Respiratory Rate 20 Blood Pressure 104/41 L 128/89 Pulse Oximetry 93 Oxygen Delivery Oxygen Flow Rate 07/17/24 20:00 07/17/24 20:00 07/17/24 22:00 Temperature 36.5 C Pulse Rate 113 H 107 H Respiratory Rate 20 Blood Pressure 111/77 Pulse Oximetry 98 Oxygen Delivery Room Air Oxygen Flow Rate 07/17/24 22:00 07/17/24 20:00 07/17/24 22:00 Temperature Pulse Rate 110 H 107 H 110 H Respiratory Rate Blood Pressure Pulse Oximetry Oxygen Delivery Oxygen Flow Rate 07/17/24 23:14 07/17/24 23:34 07/17/24 23:35 Temperature 36.4 C L Pulse Rate 112 H 116 H 116 H Respiratory Rate 20 Blood Pressure 110/89 Pulse Oximetry 98 Oxygen Delivery Oxygen Flow Rate 07/17/24 23:55 07/18/24 00:14 07/18/24 00:14 Temperature Pulse Rate 102 H 102 H Respiratory Rate Blood Pressure Pulse Oximetry 94 Oxygen Delivery Nasal Cannula Oxygen Flow Rate 2 07/18/24 00:00 07/18/24 01:55 07/18/24 01:56 Temperature 36.6 C Pulse Rate 105 H 109 H 104 H Respiratory Rate 22 H Blood Pressure 108/80 Pulse Oximetry 93 Oxygen Delivery Oxygen Flow Rate 07/18/24 04:00 07/18/24 02:00 07/18/24 04:00 Temperature 36.6 C Pulse Rate 98 101 H 107 H Respiratory Rate 22 H Blood Pressure 112/65 Pulse Oximetry 96 Oxygen Delivery Oxygen Flow Rate 07/18/24 04:00 07/18/24 04:00 07/18/24 06:00 Temperature Pulse Rate 99 100 Respiratory Rate Blood Pressure Pulse Oximetry 96 Oxygen Delivery Nasal Cannula Oxygen Flow Rate 2 07/18/24 06:00 07/18/24 06:00 07/18/24 08:00 Temperature 36.3 C L Pulse Rate 100 120 H Respiratory Rate 22 H Blood Pressure 95/69 L 107/72 Pulse Oximetry 91 Oxygen Delivery Oxygen Flow Rate 07/18/24 10:00 07/18/24 10:13 Temperature Pulse Rate 113 H Respiratory Rate Blood Pressure 119/91 H Pulse Oximetry Oxygen Delivery Oxygen Flow Rate Intake/Output Intake/Output: Intake & Output 07/15/24 07/16/24 07/17/24 07/18/24 23:59 23:59 23:59 23:59 Intake Total 2.3 1442.2 373.3 Output Total 2450 550 Balance 2.3 -1007.8 -176.7 Meds/Results Medications: Active Medications Generic Name Dose Route Start Last Admin Trade Name Freq PRN Reason Stop Dose Admin Acetaminophen 650 mg 07/16/24 20:33 Acetaminophen 325 Mg Tablet PO Q4H PRN Mild Pain (1-3) or Fever Furosemide 40 mg 07/17/24 09:00 07/18/24 09:33 Furosemide Inj 40 Mg/4 Ml Vial IV PUSH 40 mg DAILY [facility] Administration Amiodarone HCl/Dextrose 360 mg in 200 mls @ 16.667 mls/hr 07/17/24 14:13 07/18/24 06:00 Nexterone 360 Mg/D5w 200 Ml IV CONT 0.5 mg/min .Q12H DINESH 16.67 mls/hr Infusion 0.5 MG/MIN Ondansetron HCl 4 mg 07/16/24 20:33 Ondansetron Inj 4 Mg/2 Ml Vial IV PUSH Q6H PRN Nausea And Vomiting Warfarin Sodium 3 mg 07/18/24 17:00 Warfarin (*Pbkc) 3 Mg Tablet PO DAILY@1700 [facility] Radiology Results: ITS Impressions Chest X-Ray 07/16/24 15:18 Impression: 1: Cardiomegaly with mild interstitial edema. Venous Doppler Study 07/16/24 15:59 IMPRESSION: 1. No deep venous thrombosis in either lower limb. Labs Labs: Laboratory Results - last 24 hr 07/18/24 04:41 WBC 11.3 H RBC 4.90 Hgb 16.3 Hct 48.8 MCV 99.6 MCH 33.3 MCHC 33.4 RDW 14.9 H Plt Count 148 L MPV 11.9 H Immature Gran % (Auto) 0.4 Neut % (Auto) 83.8 H Lymph % (Auto) 6.6 L [place] % (Auto) 8.8 H Eos % (Auto) 0.2 Baso % (Auto) 0.2 Lymph # (Auto) 0.75 L [place] # (Auto) 1.0 H Eos # (Auto) 0.0 Baso # (Auto) 0.0 Abs Immat Gran (auto) 0.05 H Absolute Neuts (auto) 9.5 H Absolute Nucleated RBC 0.000 Nucleated RBC % 0.0 PT 29.4 H INR 2.7 Sodium 137 Potassium 3.2 L Chloride 99 Carbon Dioxide 30 Anion Gap 8 BUN 39 H Creatinine 0.90 Estim Creat Clear Calc 50 Estimated GFR > 60 Glucose 116 H Calcium 8.3 L Total Bilirubin 1.4 H AST 64 H ALT 37 Alkaline Phosphatase 83 Total Protein 6.0 L Albumin 3.3 L Quality VTE Prophylaxis VTE prophylaxis: pharmacologic ordered
[2024-07-18 12:16] LABS: Potassium 3.8 mmol/L (3.4-5.0)
--- NOTE | 2024-07-18 13:31 | PCPTNOTE ---
Attempted to see patient for PT, however patient declined due to patient leaving in 15-20 minutes for cardioversion.
--- NOTE | 2024-07-18 14:07 | WPDMODSED ---
Moderate Sedation Note-Pt Data Patient Data Diagnosis: Atrial flutter with rapid ventricular response Present Complaint: No complaints Procedure to be performed/Plan: DC cardioversion Allergies Allergy/AdvReac Type Severity Reaction Status Date / Time No Known Allergies Allergy Verified 07/16/24 19:17 Home Medications Medication Instructions Recorded Confirmed Type warfarin 3 mg tablet 3 mg PO HS 07/16/24 07/16/24 History Current Medications: Active Medications Acetaminophen (Acetaminophen 325 Mg Tablet) 650 mg PO Q4H PRN PRN Reason: Mild Pain (1-3) or Fever Furosemide (Furosemide Inj 40 Mg/4 Ml Vial) 40 mg IV PUSH DAILY [facility] Last Admin: 07/18/24 09:33 Dose: 40 mg Amiodarone HCl/Dextrose (Nexterone 360 Mg/D5w 200 Ml) 360 mg in 200 mls @ 16.667 mls/hr IV CONT .Q12H [facility] Last Infusion: 07/18/24 12:00 Dose: 0.5 mg/min, 16.67 mls/hr Ondansetron HCl (Ondansetron Inj 4 Mg/2 Ml Vial) 4 mg IV PUSH Q6H PRN PRN Reason: Nausea And Vomiting Warfarin Sodium (Warfarin (*Pbkc) 3 Mg Tablet) 3 mg PO DAILY@1700 [facility] Sedation/Anesthesia: No previous sedation/anesthesia problems (including family history). [facility] Past Medical History Medical History CHF (congestive heart failure) Surgical History Surgical History H/O radical prostatectomy 2009 Hx of hernia repair bilat inguinal Family History Family History Father Cerebrovascular accident Sibling Family history of lung cancer, Onset Age: 61 Family history of malignant neoplasm of brain, Onset Age: 80 Social History Social History Smoking packs per day: 0.5 Smoking cigarettes per day: 10.0 Years smoked: 2 Smoking pack-years: 1.00 Smoking status: Former smoker Alcohol intake: current Drinks per week: 6 Substance use: never Substance use type: does not use Do You Feel Safe in your Home?: Yes Lack of Transportation: No Lack of Food: Never True Current Housing: I Have Housing Concerned About Future Housing: No Difficulty Paying Gas/Electric Bills: No Difficulty Paying for Meds: No Currently Unemployed: No Education: High School Diploma/GED Difficulty w/ Childcare or Family Care: No Spiritual care concerns: No Mod Sed Physical Exam Physical Exam Pre Procedural Exam: Normal: Appearance (Pleasant elderly man no distress), Neck, Throat, Airway, Lungs, Heart Size and Neuro Exam and Variation: Heart Rate (Heart rate 115, atrial flutter) and Heart Rhythm Hours since solid foods: 14 Hours since liquid intake: 14 Mallampati Classification: class II Internal Medicine - PN: Obj Da Vital Signs Vital Signs: Vital Signs - 24 hr 07/17/24 14:11 07/17/24 14:40 07/17/24 16:31 Temperature 35.9 C L 35.8 C L Pulse Rate 114 H 113 H 107 H Respiratory Rate 18 20 Blood Pressure 113/67 113/67 107/82 Pulse Oximetry 97 97 Oxygen Delivery Oxygen Flow Rate 07/17/24 16:00 07/17/24 18:28 07/17/24 18:00 Temperature 36.2 C L Pulse Rate 96 112 H 110 H Respiratory Rate 20 Blood Pressure 104/41 L Pulse Oximetry 99 Oxygen Delivery Oxygen Flow Rate 07/17/24 18:30 07/17/24 20:06 07/17/24 20:00 Temperature 36.4 C Pulse Rate 112 H 112 H Respiratory Rate 20 Blood Pressure 104/41 L 128/89 Pulse Oximetry 93 Oxygen Delivery Room Air Oxygen Flow Rate 07/17/24 20:00 07/17/24 22:00 07/17/24 22:00 Temperature 36.5 C Pulse Rate 113 H 107 H 110 H Respiratory Rate 20 Blood Pressure 111/77 Pulse Oximetry 98 Oxygen Delivery Oxygen Flow Rate 07/17/24 20:00 07/17/24 22:00 07/17/24 23:14 Temperature 36.4 C L Pulse Rate 107 H 110 H 112 H Respiratory Rate 20 Blood Pressure 110/89 Pulse Oximetry 98 Oxygen Delivery Oxygen Flow Rate 07/17/24 23:34 07/17/24 23:35 07/17/24 23:55 Temperature Pulse Rate 116 H 116 H Respiratory Rate Blood Pressure Pulse Oximetry 94 Oxygen Delivery Nasal Cannula Oxygen Flow Rate 2 07/18/24 00:14 07/18/24 00:14 07/18/24 00:00 Temperature Pulse Rate 102 H 102 H 105 H Respiratory Rate Blood Pressure Pulse Oximetry Oxygen Delivery Oxygen Flow Rate 07/18/24 01:55 07/18/24 01:56 07/18/24 04:00 Temperature 36.6 C 36.6 C Pulse Rate 109 H 104 H 98 Respiratory Rate 22 H 22 H Blood Pressure 108/80 112/65 Pulse Oximetry 93 96 Oxygen Delivery Oxygen Flow Rate 07/18/24 02:00 07/18/24 04:00 07/18/24 04:00 Temperature Pulse Rate 101 H 107 H Respiratory Rate Blood Pressure Pulse Oximetry 96 Oxygen Delivery Nasal Cannula Oxygen Flow Rate 2 07/18/24 04:00 07/18/24 06:00 07/18/24 06:00 Temperature Pulse Rate 99 100 100 Respiratory Rate Blood Pressure Pulse Oximetry Oxygen Delivery Oxygen Flow Rate 07/18/24 06:00 07/18/24 08:00 07/18/24 10:00 Temperature 36.3 C L Pulse Rate 120 H Respiratory Rate 22 H Blood Pressure 95/69 L 107/72 119/91 H Pulse Oximetry 91 Oxygen Delivery Oxygen Flow Rate 07/18/24 10:13 07/18/24 08:00 07/18/24 10:51 Temperature Pulse Rate 113 H 116 H 106 H Respiratory Rate Blood Pressure 119/91 H Pulse Oximetry Oxygen Delivery Oxygen Flow Rate 07/18/24 10:51 07/18/24 10:00 07/18/24 11:10 Temperature Pulse Rate 106 H 113 H Respiratory Rate Blood Pressure 119/91 H Pulse Oximetry Oxygen Delivery Nasal Cannula Oxygen Flow Rate 2 07/18/24 12:00 07/18/24 12:00 07/18/24 12:00 Temperature 36.3 C L Pulse Rate 104 H 93 104 H Respiratory Rate 18 Blood Pressure 106/85 106/85 Pulse Oximetry 100 Oxygen Delivery Oxygen Flow Rate 07/18/24 12:50 07/18/24 14:00 Temperature 36.7 C Pulse Rate 102 H Respiratory Rate 19 Blood Pressure 115/86 Pulse Oximetry 95 95 Oxygen Delivery Nasal Cannula Oxygen Flow Rate 2 2.0 Intake/Output Intake/Output: Intake & Output 07/15/24 07/16/24 07/17/24 07/18/24 23:59 23:59 23:59 23:59 Intake Total 2.3 1442.2 473.3 Output Total 2450 550 Balance 2.3 -1007.8 -76.7 Meds/Results Medications: Active Medications Generic Name Dose Route Start Last Admin Trade Name Freq PRN Reason Stop Dose Admin Acetaminophen 650 mg 07/16/24 20:33 Acetaminophen 325 Mg Tablet PO Q4H PRN Mild Pain (1-3) or Fever Furosemide 40 mg 07/17/24 09:00 07/18/24 09:33 Furosemide Inj 40 Mg/4 Ml Vial IV PUSH 40 mg DAILY [facility] Administration Amiodarone HCl/Dextrose 360 mg in 200 mls @ 16.667 mls/hr 07/17/24 14:13 07/18/24 12:00 Nexterone 360 Mg/D5w 200 Ml IV CONT 0.5 mg/min .Q12H DINESH 16.67 mls/hr Infusion 0.5 MG/MIN Ondansetron HCl 4 mg 07/16/24 20:33 Ondansetron Inj 4 Mg/2 Ml Vial IV PUSH Q6H PRN Nausea And Vomiting Warfarin Sodium 3 mg 07/18/24 17:00 Warfarin (*Pbkc) 3 Mg Tablet PO DAILY@1700 [facility] Radiology Results: ITS Impressions Chest X-Ray 07/16/24 15:18 Impression: 1: Cardiomegaly with mild interstitial edema. Venous Doppler Study 07/16/24 15:59 IMPRESSION: 1. No deep venous thrombosis in either lower limb. Labs 07/18/24 04:41 07/18/24 11:55 Labs: Laboratory Results - last 24 hr 07/18/24 07/18/24 04:41 11:55 WBC 11.3 H RBC 4.90 Hgb 16.3 Hct 48.8 MCV 99.6 MCH 33.3 MCHC 33.4 RDW 14.9 H Plt Count 148 L MPV 11.9 H Immature Gran % (Auto) 0.4 Neut % (Auto) 83.8 H Lymph % (Auto) 6.6 L [place] % (Auto) 8.8 H Eos % (Auto) 0.2 Baso % (Auto) 0.2 Lymph # (Auto) 0.75 L [place] # (Auto) 1.0 H Eos # (Auto) 0.0 Baso # (Auto) 0.0 Abs Immat Gran (auto) 0.05 H Absolute Neuts (auto) 9.5 H Absolute Nucleated RBC 0.000 Nucleated RBC % 0.0 PT 29.4 H INR 2.7 Sodium 137 Potassium 3.2 L 3.8 Chloride 99 Carbon Dioxide 30 Anion Gap 8 BUN 39 H Creatinine 0.90 Estim Creat Clear Calc 50 Estimated GFR > 60 Glucose 116 H Calcium 8.3 L Total Bilirubin 1.4 H AST 64 H ALT 37 Alkaline Phosphatase 83 Total Protein 6.0 L Albumin 3.3 L ASA Classification/Sedation ASA Classification/Sedation ASA Class: III Emergent: No Risks: Risks, benefits and alternatives explained and patient/family accepted plan for sedation. Patient re-evaluated immediately prior to sedation.
--- NOTE | 2024-07-18 14:24 | P.PCNCC_ITS ---
Cardiac Cath Procedure Note Date of procedure:: 07/18/24 Performing physician:: Carlos Ivan MD Indication:: Recent onset atrial flutter Brief clinical history:: This is an 89-year-old man who was seen by his physician recently and was found to be tachycardic and in atrial flutter with rapid response. He does have history of atrial fibrillation and has been systemically anticoagulated with warfarin. Despite loading with amiodarone he persists in a flutter an attempt to restore sinus rhythm electrically is being performed Procedure Procedure performed:: DC cardioversion Sedation/Medication given:: IV propofol in aliquots total dosage is 70 mg Estimated blood loss:: None Procedure note:: Patient was brought to the cardiac maintenance shop laborer holding area where he was in the supine position with defibrillator patches in the AP position. He was sedated with propofol as described above. He was counter shocked in a synchronized fashion with 200 joules which did not change his rhythm. The energy was then turned up to 360 joules in synchronized fashion. Occur shock at this energy did not also did not terminate his atrial flutter. Findings:: As above Conclusion:: Uncomplicated but unsuccessful attempt at electrical terminate gómez of atrial flutter failing at 200 and then at 360 joules of energy Carlos Ivan MD [facility]
--- NOTE | 2024-07-18 14:36 | ECG_ITS ---
Test Date: 2024-07-18 14:43:53 Measurements Intervals [place] Rate: 77 P: 0 GA: 0 QRS: -53 QRSD: 108 T: 95 QT: 416 QTc: 471 Interpretive Statements SINUS RHYTHM WITH FIRST-DEGREE AV BLOCK AND PACS INTRAVENTRICULAR CONDUCTION DELAY CANNOT RULE OUT PREVIOUS ANTEROSEPTAL AND INFERIOR INFARCTIONS ABNORMAL ECG Compared to ECG 07/16/2024 19:10:26 SINUS RHYTHM REPLACES ATRIAL FLUTTER Electronically Signed On 07-19-2024 07:22:42 CDT by Carlos Ivan M.D.
[2024-07-18] MEDS: WARFARIN (*PBKC) 3 MG TABLET PO (17:06)
--- NOTE | 2024-07-18 17:34 | P.PNIM_ITS ---
Progress Note: A&P Assessment and Plan (1) Acute exacerbation of CHF (congestive heart failure): Code(s): I50.9 - Heart failure, unspecified Status: Acute Assessment and Plan: * Patient came in with shortness of breath, AFib RVR, 4+ pitting edema, anasarca, and fatigue * Cardiology following. * Echocardiogram pending. * Continue diuresis with Lasix IV, 40 mg DQ for now. * Venous Doppler study negative for DVT * Chest x-ray showing cardiomegaly with mild interstitial edema * Strict intake and output * Fluid restriction * Heart healthy diet * Daily weight (2) Atrial fibrillation with rapid ventricular response: Code(s): I48.91 - Unspecified atrial fibrillation Status: Acute Assessment and Plan: * Telemetry showing AFib/flutter with a rate of 110's-140's currently. * Patient normally is always in AFib and only takes Coumadin at home, no rate control medication * Currently on amiodarone drip per cardiology. * Possible DC conversion attempt later today per professor of theater. * Cardiology following. * Continue Coumadin * Check INR daily (3) Elevated troponin: Code(s): R79.89 - Other specified abnormal findings of blood chemistry Status: Acute Assessment and Plan: * Initial troponin 0.121> 0.157 * Likely demand ischemia from fluid overload. * Continue to trend. * Further w/u per professor of theater. (4) Weakness: Code(s): R53.1 - Weakness Status: Acute Assessment and Plan: * PT and OT eval and treatment when A-Fib controlled. Subjective Date/time seen: 07/18/24 10:34 Interval history: Patient presented to the hospital with complaints of shortness of breath and AFib with RVR which was found by his primary care physician. Patient is being followed up by the professor of theater and has been started on amiodarone drip for possible rhythm conversion. Patient will be considered for cardioversion if unable to convert on amiodarone drip. Pt currently comfortable on bedrest with son bedside, denies any distressful symptoms as they await professor of theater. Review of Systems Review of Systems: All systems reviewed & are unremarkable except as noted in HPI and below Constitutional: Constitutional: Reports as per HPI and Reports no additional constitutional complaints Eyes: Eyes: Reports as per HPI and Reports no additional eye complaints ENT: Reports system reviewed and no additional complaints, except as documented and Reports as per HPI Cardiovascular: Cardiovascular: Reports as per HPI and Reports no additional cardiovascular complaints Respiratory: Respiratory: Reports as per HPI and Reports no additional respira tory complaints Gastrointestinal: Gastrointestinal: Reports as per HPI and Reports no additional gastrointestinal complaints Genitourinary: Genitourinary: Reports no additional male genitourinary complaints and Reports as per HPI Musculoskeletal: Musculoskeletal: Reports no additional musculoskeletal complaints and Reports as per HPI Integumentary/Breasts: Skin/Breast: Reports system reviewed and no additional complaints, except as docu and Reports as per HPI Neurologic: Reports system reviewed and no additional complaints, except as documented and Reports as per HPI Psychiatric: Psychiatric: Reports no additional psychiatric complaints and Reports as per HPI Exam Narrative: General: Generalized muscle weakness, no acute distress. Head: atraumatic, no encephalopathy Eyes: EOMI, PERRLA, sclera clear ENT: moist mucous membranes, nasal passages clear Neck: supple, no JVD, no adenopathy, trachea midline Cardiac: Irregularly irregular, AFib with RVR, No murmurs. Respiratory: Diminished breath sounds, Gastrointestinal: soft, non-distended, non-tender, normoactive bowel sounds. Anasarca present : voiding without difficulty. Extremities: moves all extremities well, 3+ pitting edema to bilateral lower extremities good ROM, strength 4/5 Skin: clean, dry, intact. No wounds or lesions. Neuro: Alert and oriented x4, cranial nerves intact, no neuro deficits. Psych: normal mood, normal affect, interactive Objective Data Vital Signs Vital Signs: Vital Signs - 24 hr 07/17/24 18:28 07/17/24 18:00 07/17/24 18:30 Temperature 97.1 F L Pulse Rate 112 H 110 H 112 H Respiratory Rate 20 Blood Pressure 104/41 L 104/41 L Pulse Oximetry 99 Oxygen Delivery Oxygen Flow Rate 07/17/24 20:06 07/17/24 20:00 07/17/24 20:00 Temperature 97.6 F Pulse Rate 112 H 113 H Respiratory Rate 20 Blood Pressure 128/89 Pulse Oximetry 93 Oxygen Delivery Room Air Oxygen Flow Rate 07/17/24 22:00 07/17/24 22:00 07/17/24 20:00 Temperature 97.7 F Pulse Rate 107 H 110 H 107 H Respiratory Rate 20 Blood Pressure 111/77 Pulse Oximetry 98 Oxygen Delivery Oxygen Flow Rate 07/17/24 22:00 07/17/24 23:14 07/17/24 23:34 Temperature 97.5 F L Pulse Rate 110 H 112 H 116 H Respiratory Rate 20 Blood Pressure 110/89 Pulse Oximetry 98 Oxygen Delivery Oxygen Flow Rate 07/17/24 23:35 07/17/24 23:55 07/18/24 00:14 Temperature Pulse Rate 116 H 102 H Respiratory Rate Blood Pressure Pulse Oximetry 94 Oxygen Delivery Nasal Cannula Oxygen Flow Rate 2 07/18/24 00:14 07/18/24 00:00 07/18/24 01:55 Temperature 97.8 F Pulse Rate 102 H 105 H 109 H Respiratory Rate 22 H Blood Pressure 108/80 Pulse Oximetry 93 Oxygen Delivery Oxygen Flow Rate 07/18/24 01:56 07/18/24 04:00 07/18/24 02:00 Temperature 97.9 F Pulse Rate 104 H 98 101 H Respiratory Rate 22 H Blood Pressure 112/65 Pulse Oximetry 96 Oxygen Delivery Oxygen Flow Rate 07/18/24 04:00 07/18/24 04:00 07/18/24 04:00 Temperature Pulse Rate 107 H 99 Respiratory Rate Blood Pressure Pulse Oximetry 96 Oxygen Delivery Nasal Cannula Oxygen Flow Rate 2 07/18/24 06:00 07/18/24 06:00 07/18/24 06:00 Temperature Pulse Rate 100 100 Respiratory Rate Blood Pressure 95/69 L Pulse Oximetry Oxygen Delivery Oxygen Flow Rate 07/18/24 08:00 07/18/24 10:00 07/18/24 10:13 Temperature 97.3 F L Pulse Rate 120 H 113 H Respiratory Rate 22 H Blood Pressure 107/72 119/91 H Pulse Oximetry 91 Oxygen Delivery Oxygen Flow Rate 07/18/24 08:00 07/18/24 10:51 07/18/24 10:51 Temperature Pulse Rate 116 H 106 H 106 H Respiratory Rate Blood Pressure 119/91 H 119/91 H Pulse Oximetry Oxygen Delivery Oxygen Flow Rate 07/18/24 10:00 07/18/24 11:10 07/18/24 12:00 Temperature 97.4 F L Pulse Rate 113 H 104 H Respiratory Rate 18 Blood Pressure 106/85 Pulse Oximetry 100 Oxygen Delivery Nasal Cannula Oxygen Flow Rate 2 07/18/24 12:00 07/18/24 12:00 07/18/24 12:50 Temperature Pulse Rate 93 104 H Respiratory Rate Blood Pressure 106/85 Pulse Oximetry 95 Oxygen Delivery Nasal Cannula Oxygen Flow Rate 2 07/18/24 14:00 07/18/24 14:10 07/18/24 14:15 Temperature 98.0 F 98.0 F Pulse Rate 102 H 103 H 104 H Respiratory Rate 19 12 20 Blood Pressure 115/86 114/86 116/79 Pulse Oximetry 95 94 97 Oxygen Delivery Oxygen Flow Rate 2.0 2.0 07/18/24 14:45 07/18/24 14:00 07/18/24 14:20 Temperature Pulse Rate 79 109 H 109 H Respiratory Rate 19 15 Blood Pressure 123/91 H 114/86 Pulse Oximetry 100 80 L Oxygen Delivery Oxygen Flow Rate 4.0 15 07/18/24 14:25 07/18/24 14:30 07/18/24 14:35 Temperature Pulse Rate 108 H 98 70 Respiratory Rate 14 15 14 Blood Pressure 99/82 L 103/64 101/70 Pulse Oximetry 94 100 94 Oxygen Delivery Oxygen Flow Rate 15 15 15 07/18/24 14:40 07/18/24 15:00 07/18/24 15:15 Temperature Pulse Rate 78 79 71 Respiratory Rate 21 H 20 21 H Blood Pressure 110/82 99/72 L 117/89 Pulse Oximetry 100 97 99 Oxygen Delivery Oxygen Flow Rate 6.0 2.0 2.0 07/18/24 15:30 07/18/24 16:00 07/18/24 16:00 Temperature 97 F L Pulse Rate 82 91 77 Respiratory Rate 23 H 12 Blood Pressure 100/80 112/77 Pulse Oximetry 99 100 Oxygen Delivery Oxygen Flow Rate 2.0 Intake/Output Intake/Output: Intake & Output 07/15/24 07/16/24 07/17/24 07/18/24 23:59 23:59 23:59 23:59 Intake Total 2.3 1442.2 473.3 Output Total 2450 800 Balance 2.3 -1007.8 -326.7 Meds/Results Medications: Active Medications Generic Name Dose Route Start Last Admin Trade Name Freq PRN Reason Stop Dose Admin Acetaminophen 650 mg 07/16/24 20:33 Acetaminophen 325 Mg Tablet PO Q4H PRN Mild Pain (1-3) or Fever Amiodarone HCl 200 mg 07/19/24 08:00 Amiodarone Hcl 200 Mg Tablet PO DAILY@0800 [facility] Furosemide 40 mg 07/17/24 09:00 07/18/24 09:33 Furosemide Inj 40 Mg/4 Ml Vial IV PUSH 40 mg DAILY DINESH Administration Ondansetron HCl 4 mg 07/16/24 20:33 Ondansetron Inj 4 Mg/2 Ml Vial IV PUSH Q6H PRN Nausea And Vomiting Warfarin Sodium 3 mg 07/18/24 17:00 07/18/24 17:06 Warfarin (*Pbkc) 3 Mg Tablet PO 3 mg DAILY@1700 DINESH Administration Radiology Results: ITS Impressions Chest X-Ray 07/16/24 15:18 Impression: 1: Cardiomegaly with mild interstitial edema. Venous Doppler Study 07/16/24 15:59 IMPRESSION: 1. No deep venous thrombosis in either lower limb. Labs Labs: Laboratory Results - last 24 hr 07/18/24 07/18/24 04:41 11:55 WBC 11.3 H RBC 4.90 Hgb 16.3 Hct 48.8 MCV 99.6 MCH 33.3 MCHC 33.4 RDW 14.9 H Plt Count 148 L MPV 11.9 H Immature Gran % (Auto) 0.4 Neut % (Auto) 83.8 H Lymph % (Auto) 6.6 L [place] % (Auto) 8.8 H Eos % (Auto) 0.2 Baso % (Auto) 0.2 Lymph # (Auto) 0.75 L [place] # (Auto) 1.0 H Eos # (Auto) 0.0 Baso # (Auto) 0.0 Abs Immat Gran (auto) 0.05 H Absolute Neuts (auto) 9.5 H Absolute Nucleated RBC 0.000 Nucleated RBC % 0.0 PT 29.4 H INR 2.7 Sodium 137 Potassium 3.2 L 3.8 Chloride 99 Carbon Dioxide 30 Anion Gap 8 BUN 39 H Creatinine 0.90 Estim Creat Clear Calc 50 Estimated GFR > 60 Glucose 116 H Calcium 8.3 L Total Bilirubin 1.4 H AST 64 H ALT 37 Alkaline Phosphatase 83 Total Protein 6.0 L Albumin 3.3 L Quality VTE Prophylaxis VTE prophylaxis: pharmacologic ordered Hospitalist MIPS Advance Care Plan I have confirmed that the patient's Advanced Care Plan is present, code status is documented, or surrogate decision maker is listed in patient medical record.: Yes Medication Reconciliation I have utilized all available resources to obtain, update and review the patients current medications (includes all prescriptions, OTC, herbals, cannabis, and nutritional supplements).: Yes
--- NOTE | 2024-07-18 19:13 | ECG_ITS ---
Test Date: 2024-07-18 19:16:16 Measurements Intervals [place] Rate: 101 P: 0 [place]: 0 QRS: 223 QRSD: 109 T: 66 QT: 367 QTc: 477 Interpretive Statements ATRIAL FLUTTER WITH CONTROLLED RESPONSE INTRAVENTRICULAR CONDUCTION DELAY CANNOT RULE OUT PREVIOUS ANTEROSEPTAL AND INFERIOR INFARCTIONS ABNORMAL ECG Compared to ECG 07/18/2024 14:43:53 ATRIAL FLUTTER REPLACES SINUS RHYTHM Electronically Signed On 07-19-2024 07:33:56 CDT by Carlos Ivan M.D.
[2024-07-18] MEDS: AMIODARONE 360 MG/D5W 200 ML 360 MG/200 ML BAG 33.33 MG IV CONT (20:23)
[2024-07-19] VITALS (27 sets, daily range): BP systolic 97–111; BP diastolic 65–82; PULSE 79–103; RESP 16–20; TEMP 36.3–36.7; O2SAT 93–99
[2024-07-19] MEDS: AMIODARONE 360 MG/D5W 200 ML 360 MG/200 ML BAG 33.33 MG IV CONT ×2 (01:57→08:21)
[2024-07-19 07:28] LABS: Basophils Percent Auto 0.4 % (0.2-1.2); Eosinophils Absolute Auto 0.1 K/mm3 (0-0.3); Eosinophils Percent Auto 0.7 % (0-4.4); Hematocrit 52.8 % (42.0-52.0); Hemoglobin 17.4 g/dL (14.0-18.0); Immature Granulocyte Absolute 0.03 K/mm3 (0.00-0.031); Immature Granulocyte Percent A 0.4 % (0-0.5); Lymphocytes Absolute Auto 1.01 K/mm3 (0.9-3.2); Mean Corpuscular Hemoglobin 33.8 pg (26-34); Mean Corpuscular Volume 102.5 fl (80-100); Mean Platelet Volume 12.3 fl (7.4-10.4); Monocytes Absolute Auto 0.8 K/mm3 (0.1-0.6); Monocytes Percent Auto 9.6 % (2.6-8.5); Neutrophils Absolute Auto 6.5 K/mm3 (1.3-6.7); Neutrophils Percent Auto 76.9 % (45.5-73.1); Platelet Count Result 158 k/mm3 (150-375); Red Blood Count 5.15 M/mm3 (4.6-6.20); White Blood Count 8.4 K/mm3 (4.5-10.0)
[2024-07-19 07:34] LABS: INR 2.4; Prothrombin Time 27.3 Seconds (11.1-14.7)
[2024-07-19 07:53] LABS: Atypical Lymphocytes Present; Platelet Estimate Adequate (Adequate); Schistocytes None Seen
[2024-07-19] MEDS: FUROSEMIDE INJ 40 MG/4 ML VIAL IV PUSH (08:26)
--- NOTE | 2024-07-19 10:41 | P.PNIM_ITS ---
Progress Note: A&P Assessment and Plan (1) Acute exacerbation of CHF (congestive heart failure): Code(s): I50.9 - Heart failure, unspecified Status: Acute Assessment and Plan: * Acute on chronic. * Patient presented with shortness of breath, AFib RVR, 4+ pitting edema, anasarca, and fatigue. * Cardiology following. * Currently on Lasix IVP, 40 mg QD. * Venous Doppler study negative for DVT * Chest x-ray showing cardiomegaly with mild interstitial edema * Strict intake and output * Fluid restriction * Heart healthy diet * Daily weights (2) Atrial fibrillation with rapid ventricular response: Code(s): I48.91 - Unspecified atrial fibrillation Status: Acute Assessment and Plan: * Telemetry showing flutter with a rate low 100's. * Patient yesterday underwent DC Cardioversion and converted to sinus on 2nd attempt. * Patient unfortunately went back to A-Flutter in the evening. * Currently on amiodarone drip. * Patient previously not on rate control medication. * Trauma Program Manager considering starting patient on Metoprolol for rate control. * Continue tele monitoring. * Continue Coumadin with daily INR. (3) Elevated troponin: Code(s): R79.89 - Other specified abnormal findings of blood chemistry Status: Acute Assessment and Plan: * Initial troponin 0.121> 0.157 * Likely demand ischemia from fluid overload. * No further w/u recommended. (4) Weakness: Code(s): R53.1 - Weakness Status: Acute Assessment and Plan: * PT and OT eval and treatment. Time Spent With Patient Time with patient: 25 - 35 minutes Subjective Date/time seen: 07/19/24 10:41 Interval history: Patient presented to the hospital with complaints of shortness of breath and AFib with RVR which was found by his primary care physician. Patient is being followed up by the jewel lathe operator and was cardioverted yesterday but went bank into A-Flutter overnight. Trauma Program Manager considering starting patient on Metoprolol for rate control, and let patient maintain his A-fib rhythm, considering patient's age. Patient currently in A-Flutter on telemetry. Patient calm on bedrest with son bedside, denies any distressful symptoms, states he sat on the chair for a long period earlier today. Review of Systems Review of Systems: All systems reviewed & are unremarkable except as noted in HPI and below Constitutional: Constitutional: Reports as per HPI and Reports no additional constitutional complaints Eyes: Eyes: Reports as per HPI and Reports no additional eye complaints ENT: Reports system reviewed and no additional complaints, except as documented and Reports as per HPI Cardiovascular: Cardiovascular: Reports as per HPI and Reports no additional cardiovascular complaints Respiratory: Respiratory: Reports as per HPI and Reports no additional respiratory complaints Gastrointestinal: Gastrointestinal: Reports as per HPI and Reports no china tional gastrointestinal complaints Genitourinary: Genitourinary: Reports no additional male genitourinary complaints and Reports as per HPI Musculoskeletal: Musculoskeletal: Reports no additional musculoskeletal complaints and Reports as per HPI Integumentary/Breasts: Skin/Breast: Reports system reviewed and no additional complaints, except as docu and Reports as per HPI Neurologic: Reports system reviewed and no additional complaints, except as documented and Reports as per HPI Psychiatric: Psychiatric: Reports no additional psychiatric complaints and Reports as per HPI Exam Narrative: General: Generalized muscle weakness, no acute distress. Head: atraumatic, no encephalopathy Eyes: EOMI, PERRLA, sclera clear ENT: moist mucous membranes, nasal passages clear Neck: supple, no JVD, no adenopathy, trachea midline Cardiac: Irregularly irregular, No murmurs. Respiratory: Diminished breath sounds, Gastrointestinal: soft, non-distended, non-tender, normoactive bowel sounds. Anasarca present : voiding without difficulty. Extremities: moves all extremities well, 3+ pitting edema to bilateral lower extremities good ROM, strength 4/5 Skin: clean, dry, intact. No wounds or lesions. Neuro: Alert and oriented x4, cranial nerves intact, no neuro deficits. Psych: normal mood, normal affect, interactive Objective Data Vital Signs Vital Signs: Vital Signs - 24 hr 07/18/24 10:51 07/18/24 10:51 07/18/24 11:10 Temperature Pulse Rate 106 H 106 H Respiratory Rate Blood Pressure 119/91 H 119/91 H Pulse Oximetry Oxygen Delivery Nasal Cannula Oxygen Flow Rate 2 07/18/24 12:00 07/18/24 12:00 07/18/24 12:00 Temperature 97.4 F L Pulse Rate 104 H 93 104 H Respiratory Rate 18 Blood Pressure 106/85 106/85 Pulse Oximetry 100 Oxygen Delivery Oxygen Flow Rate 07/18/24 12:50 07/18/24 14:00 07/18/24 14:10 Temperature 98.0 F 98.0 F Pulse Rate 102 H 103 H Respiratory Rate 19 12 Blood Pressure 115/86 114/86 Pulse Oximetry 95 95 94 Oxygen Delivery Nasal Cannula Oxygen Flow Rate 2 2.0 2.0 07/18/24 14:15 07/18/24 14:45 07/18/24 14:00 Temperature Pulse Rate 104 H 79 109 H Respiratory Rate 20 19 Blood Pressure 116/79 123/91 H Pulse Oximetry 97 100 Oxygen Delivery Oxygen Flow Rate 4.0 07/18/24 14:20 07/18/24 14:25 07/18/24 14:30 Temperature Pulse Rate 109 H 108 H 98 Respiratory Rate 15 14 15 Blood Pressure 114/86 99/82 L 103/64 Pulse Oximetry 80 L 94 100 Oxygen Delivery Oxygen Flow Rate 15 15 15 07/18/24 14:35 07/18/24 14:40 07/18/24 15:00 Temperature Pulse Rate 70 78 79 Respiratory Rate 14 21 H 20 Blood Pressure 101/70 110/82 99/72 L Pulse Oximetry 94 100 97 Oxygen Delivery Oxygen Flow Rate 15 6.0 2.0 07/18/24 15:15 07/18/24 15:30 07/18/24 16:00 Temperature Pulse Rate 71 82 91 Respiratory Rate 21 H 23 H Blood Pressure 117/89 100/80 Pulse Oximetry 99 99 Oxygen Delivery Oxygen Flow Rate 2.0 2.0 07/18/24 16:00 07/18/24 18:00 07/18/24 20:10 Temperature 97 F L 97.6 F Pulse Rate 77 84 101 H Respiratory Rate 12 16 Blood Pressure 112/77 94/70 L Pulse Oximetry 100 100 Oxygen Delivery Oxygen Flow Rate 07/18/24 20:23 07/18/24 20:25 07/18/24 20:27 Temperature Pulse Rate 96 106 H 104 H Respiratory Rate Blood Pressure 94/70 L 107/65 107/65 Pulse Oximetry 98 Oxygen Delivery Oxygen Flow Rate 07/18/24 20:00 07/18/24 22:15 07/18/24 20:00 Temperature Pulse Rate 103 H 90 Respiratory Rate Blood Pressure 101/62 Pulse Oximetry 98 Oxygen Delivery Room Air Oxygen Flow Rate 07/18/24 22:00 07/18/24 23:17 07/18/24 23:24 Temperature 97.6 F Pulse Rate 103 H 96 Respiratory Rate 18 Blood Pressure 101/81 Pulse Oximetry 98 98 Oxygen Delivery Room Air Oxygen Flow Rate 07/19/24 00:00 07/19/24 01:56 07/19/24 01:57 Temperature Pulse Rate 98 99 99 Respiratory Rate Blood Pressure 98/68 L 98/68 L Pulse Oximetry Oxygen Delivery Oxygen Flow Rate 07/19/24 01:57 07/19/24 01:58 07/19/24 02:00 Temperature Pulse Rate 99 103 H Respiratory Rate Blood Pressure 98/68 L 98/68 L Pulse Oximetry Oxygen Delivery Oxygen Flow Rate 07/19/24 03:58 07/19/24 03:59 07/18/24 22:15 Temperature 97.3 F L Pulse Rate 94 97 103 H Respiratory Rate 18 Blood Pressure 108/77 108/77 101/62 Pulse Oximetry 93 Oxygen Delivery Oxygen Flow Rate 07/18/24 23:17 07/19/24 01:05 07/19/24 04:00 Temperature Pulse Rate 96 98 Respiratory Rate Blood Pressure 101/81 107/65 Pulse Oximetry 93 Oxygen Delivery Room Air Oxygen Flow Rate 07/19/24 04:00 07/18/24 22:15 07/19/24 06:00 Temperature Pulse Rate 90 92 Respiratory Rate Blood Pressure Pulse Oximetry 98 Oxygen Delivery Room Air Oxygen Flow Rate 07/19/24 06:00 07/19/24 05:59 07/19/24 08:03 Temperature 97.8 F Pulse Rate 96 96 102 H Respiratory Rate 16 Blood Pressure 105/69 105/69 101/77 Pulse Oximetry 99 Oxygen Delivery Oxygen Flow Rate 07/19/24 07:57 07/19/24 08:21 07/19/24 09:20 Temperature Pulse Rate 97 91 Respiratory Rate Blood Pressure 101/77 Pulse Oximetry 94 Oxygen Delivery Room Air Oxygen Flow Rate 07/19/24 08:00 07/19/24 08:00 Temperature Pulse Rate 96 Respiratory Rate Blood Pressure Pulse Oximetry Oxygen Delivery Room Air Oxygen Flow Rate Intake/Output Intake/Output: Intake & Output 07/16/24 07/17/24 07/18/24 07/19/24 23:59 23:59 23:59 23:59 Intake Total 2.3 1442.2 869.9 728.9 Output Total 2450 1000 250 Balance 2.3 -1007.8 -130.1 478.9 Meds/Results Medications: Active Medications Generic Name Dose Route Start Last Admin Trade Name Freq PRN Reason Stop Dose Admin Acetaminophen 650 mg 07/16/24 20:33 Acetaminophen 325 Mg Tablet PO Q4H PRN Mild Pain (1-3) or Fever Furosemide 40 mg 07/17/24 09:00 07/19/24 08:26 Furosemide Inj 40 Mg/4 Ml Vial IV PUSH 40 mg DAILY DINESH Administration Amiodarone HCl/Dextrose 360 mg in 200 mls @ 33.333 mls/hr 07/18/24 19:55 07/19/24 08:21 Nexterone 360 Mg/D5w 200 Ml IV CONT 1 mg/min .Q6H DINESH 33.33 mls/hr Administration 1 MG/MIN Metoprolol Succinate 50 mg 07/19/24 09:45 Metoprolol Succinate Ext Rel 50 Mg Tabcr PO QAM DINESH Ondansetron HCl 4 mg 07/16/24 20:33 Ondansetron Inj 4 Mg/2 Ml Vial IV PUSH Q6H PRN Nausea And Vomiting Warfarin Sodium 3 mg 07/18/24 17:00 07/18/24 17:06 Warfarin (*Pbkc) 3 Mg Tablet PO 3 mg DAILY@1700 DINESH Administration Radiology Results: ITS Impressions Chest X-Ray 07/16/24 15:18 Impression: 1: Cardiomegaly with mild interstitial edema. Venous Doppler Study 07/16/24 15:59 IMPRESSION: 1. No deep venous thrombosis in either lower limb. Labs Labs: Laboratory Results - last 24 hr 07/18/24 07/19/24 11:55 07:15 WBC 8.4 RBC 5.15 Hgb 17.4 Hct 52.8 H MCV 102.5 H MCH 33.8 MCHC 33.0 RDW 15.0 H Plt Count 158 MPV 12.3 H Immature Gran % (Auto) 0.4 Neut % (Auto) 76.9 H Lymph % (Auto) 12.0 L [place] % (Auto) 9.6 H Eos % (Auto) 0.7 Baso % (Auto) 0.4 Lymph # (Auto) 1.01 [place] # (Auto) 0.8 H Eos # (Auto) 0.1 Baso # (Auto) 0.0 Abs Immat Gran (auto) 0.03 Absolute Neuts (auto) 6.5 Absolute Nucleated RBC 0.000 Nucleated RBC % 0.0 Atypical Lymphocytes Present Platelet Estimate Adequate Schistocytes None seen PT 27.3 H INR 2.4 Potassium 3.8 Quality VTE Prophylaxis VTE prophylaxis: pharmacologic ordered Hospitalist MIPS Advance Care Plan I have confirmed that the patient's Advanced Care Plan is present, code status is documented, or surrogate decision maker is listed in patient medical record.: Yes Medication Reconciliation I have utilized all available resources to obtain, update and review the patients current medications (includes all prescriptions, OTC, herbals, cannabis, and nutritional supplements).: Yes
--- NOTE | 2024-07-19 10:48 | P.PNCA_ITS ---
Progress Note: A&P Assessment and Plan (1) Atrial flutter with rapid ventricular response: Code(s): I48.92 - Unspecified atrial flutter Status: Acute Plan 89-year-old man with: Atrial flutter which will be his chronic rhythm since he failed DC cardioversion yesterday after only maintaining sinus rhythm for a few hours after being cardioverted while on amiodarone. Amiodarone will therefore be discontinued and replaced with metoprolol. He will continue warfarin as per his PCP for systemic anticoagulation. If he is feeling well otherwise and is hemodynamically stable from my perspective he can be discharged. He is rather weak and the family indicates there may be some plans for therapy prior to discharge or attempting to take him back home since he lives alone in his own home. He does have a lot of family support nearby which is very fortunate. Carlos Ivan MD [facility] Subjective Date/time seen: Date of service:07/19/24 10:48 Interval history: Cardiology follow up for atrial fibrillation He remains in atrial fibrillation on amiodarone, rate is generally controlled. He does not have any specific complaints at the time of my visit with him. 07/19/2024: Patient is comfortable at this time has no complaints. He was in sinus rhythm for several hours yesterday after being DC cardioverted on amiodarone. Unfortunately yesterday afternoon/ early evening he lapsed back into atrial flutter. Fortunately his heart rate is no longer rapid and he is asymptomatic. Exam Const: General: comfortable and no acute distress Other: Pleasant elderly white male appearing his stated age resting comfortably HENMT: Mouth: Yes moist mucous membranes Eyes: Sclera: sclerae normal Neck: Neck: supple and no JVD Resp: Effort & Inspection: normal respiratory effort Auscultation: clear to auscultation bilaterally Cardio: Rate: tachycardic Rhythm: regular rhythm and abnormal rhythm irregularly irregular GI: Auscultation: normal bowel sounds Skin: General skin exam: normal color Neuro: Other: alert and responsive Extrem: Other: soft and warm with moderate soft pitting edema bilaterally and symmetrically. Objective Data Vital Signs Vital Signs: Vital Signs - 24 hr 07/18/24 10:51 07/18/24 10:51 07/18/24 11:10 Temperature Pulse Rate 106 H 106 H Respiratory Rate Blood Pressure 119/91 H 119/91 H Pulse Oximetry Oxygen Delivery Nasal Cannula Oxygen Flow Rate 2 07/18/24 12:00 07/18/24 12:00 07/18/24 12:00 Temperature 36.3 C L Pulse Rate 104 H 93 104 H Respiratory Rate 18 Blood Pressure 106/85 106/85 Pulse Oximetry 100 Oxygen Delivery Oxygen Flow Rate 07/18/24 12:50 07/18/24 14:00 07/18/24 14:10 Temperature 36.7 C 36.7 C Pulse Rate 102 H 103 H Respiratory Rate 19 12 Blood Pressure 115/86 114/86 Pulse Oximetry 95 95 94 Oxygen Delivery Nasal Cannula Oxygen Flow Rate 2 2.0 2.0 07/18/24 14:15 07/18/24 14:45 07/18/24 14:00 Temperature Pulse Rate 104 H 79 109 H Respiratory Rate 20 19 Blood Pressure 116/79 123/91 H Pulse Oximetry 97 100 Oxygen Delivery Oxygen Flow Rate 4.0 07/18/24 14:20 07/18/24 14:25 07/18/24 14:30 Temperature Pulse Rate 109 H 108 H 98 Respiratory Rate 15 14 15 Blood Pressure 114/86 99/82 L 103/64 Pulse Oximetry 80 L 94 100 Oxygen Delivery Oxygen Flow Rate 15 15 15 07/18/24 14:35 07/18/24 14:40 07/18/24 15:00 Temperature Pulse Rate 70 78 79 Respiratory Rate 14 21 H 20 Blood Pressure 101/70 110/82 99/72 L Pulse Oximetry 94 100 97 Oxygen Delivery Oxygen Flow Rate 15 6.0 2.0 07/18/24 15:15 07/18/24 15:30 07/18/24 16:00 Temperature Pulse Rate 71 82 91 Respiratory Rate 21 H 23 H Blood Pressure 117/89 100/80 Pulse Oximetry 99 99 Oxygen Delivery Oxygen Flow Rate 2.0 2.0 07/18/24 16:00 07/18/24 18:00 07/18/24 20:10 Temperature 36.1 C L 36.4 C Pulse Rate 77 84 101 H Respiratory Rate 12 16 Blood Pressure 112/77 94/70 L Pulse Oximetry 100 100 Oxygen Delivery Oxygen Flow Rate 07/18/24 20:23 07/18/24 20:25 07/18/24 20:27 Temperature Pulse Rate 96 106 H 104 H Respiratory Rate Blood Pressure 94/70 L 107/65 107/65 Pulse Oximetry 98 Oxygen Delivery Oxygen Flow Rate 07/18/24 20:00 07/18/24 22:15 07/18/24 20:00 Temperature Pulse Rate 103 H 90 Respiratory Rate Blood Pressure 101/62 Pulse Oximetry 98 Oxygen Delivery Room Air Oxygen Flow Rate 07/18/24 22:00 07/18/24 23:17 07/18/24 23:24 Temperature 36.4 C Pulse Rate 103 H 96 Respiratory Rate 18 Blood Pressure 101/81 Pulse Oximetry 98 98 Oxygen Delivery Room Air Oxygen Flow Rate 07/19/24 00:00 07/19/24 01:56 07/19/24 01:57 Temperature Pulse Rate 98 99 99 Respiratory Rate Blood Pressure 98/68 L 98/68 L Pulse Oximetry Oxygen Delivery Oxygen Flow Rate 07/19/24 01:57 07/19/24 01:58 07/19/24 02:00 Temperature Pulse Rate 99 103 H Respiratory Rate Blood Pressure 98/68 L 98/68 L Pulse Oximetry Oxygen Delivery Oxygen Flow Rate 07/19/24 03:58 07/19/24 03:59 07/18/24 22:15 Temperature 36.3 C L Pulse Rate 94 97 103 H Respiratory Rate 18 Blood Pressure 108/77 108/77 101/62 Pulse Oximetry 93 Oxygen Delivery Oxygen Flow Rate 07/18/24 23:17 07/19/24 01:05 07/19/24 04:00 Temperature Pulse Rate 96 98 Respiratory Rate Blood Pressure 101/81 107/65 Pulse Oximetry 93 Oxygen Delivery Room Air Oxygen Flow Rate 07/19/24 04:00 07/18/24 22:15 07/19/24 06:00 Temperature Pulse Rate 90 92 Respiratory Rate Blood Pressure Pulse Oximetry 98 Oxygen Delivery Room Air Oxygen Flow Rate 07/19/24 06:00 07/19/24 05:59 07/19/24 08:03 Temperature 36.6 C Pulse Rate 96 96 102 H Respiratory Rate 16 Blood Pressure 105/69 105/69 101/77 Pulse Oximetry 99 Oxygen Delivery Oxygen Flow Rate 07/19/24 07:57 07/19/24 08:21 07/19/24 09:20 Temperature Pulse Rate 97 91 Respiratory Rate Blood Pressure 101/77 Pulse Oximetry 94 Oxygen Delivery Room Air Oxygen Flow Rate 07/19/24 08:00 07/19/24 08:00 Temperature Pulse Rate 96 Respiratory Rate Blood Pressure Pulse Oximetry Oxygen Delivery Room Air Oxygen Flow Rate Intake/Output Intake/Output: Intake & Output 07/16/24 07/17/24 07/18/24 07/19/24 23:59 23:59 23:59 23:59 Intake Total 2.3 1442.2 869.9 728.9 Output Total 2450 1000 250 Balance 2.3 -1007.8 -130.1 478.9 Meds/Results Medications: Active Medications Generic Name Dose Route Start Last Admin Trade Name Freq PRN Reason Stop Dose Admin Acetaminophen 650 mg 07/16/24 20:33 Acetaminophen 325 Mg Tablet PO Q4H PRN Mild Pain (1-3) or Fever Furosemide 40 mg 07/17/24 09:00 07/19/24 08:26 Furosemide Inj 40 Mg/4 Ml Vial IV PUSH 40 mg DAILY DINESH Administration Amiodarone HCl/Dextrose 360 mg in 200 mls @ 33.333 mls/hr 07/18/24 19:55 07/19/24 08:21 Nexterone 360 Mg/D5w 200 Ml IV CONT 1 mg/min .Q6H DINESH 33.33 mls/hr Administration 1 MG/MIN Metoprolol Succinate 50 mg 07/19/24 09:45 Metoprolol Succinate Ext Rel 50 Mg Tabcr PO QAM DINESH Ondansetron HCl 4 mg 07/16/24 20:33 Ondansetron Inj 4 Mg/2 Ml Vial IV PUSH Q6H PRN Nausea And Vomiting Warfarin Sodium 3 mg 07/18/24 17:00 07/18/24 17:06 Warfarin (*Pbkc) 3 Mg Tablet PO 3 mg DAILY@1700 DINESH Administration Radiology Results: ITS Impressions Chest X-Ray 07/16/24 15:18 Impression: 1: Cardiomegaly with mild interstitial edema. Venous Doppler Study 07/16/24 15:59 IMPRESSION: 1. No deep venous thrombosis in either lower limb. Labs Labs: Laboratory Results - last 24 hr 07/18/24 07/19/24 11:55 07:15 WBC 8.4 RBC 5.15 Hgb 17.4 Hct 52.8 H MCV 102.5 H MCH 33.8 MCHC 33.0 RDW 15.0 H Plt Count 158 MPV 12.3 H Immature Gran % (Auto) 0.4 Neut % (Auto) 76.9 H Lymph % (Auto) 12.0 L [place] % (Auto) 9.6 H Eos % (Auto) 0.7 Baso % (Auto) 0.4 Lymph # (Auto) 1.01 [place] # (Auto) 0.8 H Eos # (Auto) 0.1 Baso # (Auto) 0.0 Abs Immat Gran (auto) 0.03 Absolute Neuts (auto) 6.5 Absolute Nucleated RBC 0.000 Nucleated RBC % 0.0 Atypical Lymphocytes Present Platelet Estimate Adequate Schistocytes None seen PT 27.3 H INR 2.4 Potassium 3.8
[2024-07-19] MEDS: METOPROLOL SUCCINATE EXT REL 50 MG TABCR PO (10:51)
[2024-07-19 11:19] LABS: Alanine Aminotransferase 47 U/L (6-50); Albumin Level 3.2 g/dL (3.5-5.1); Alkaline Phosphatase 102 U/L (38-126); Anion Gap 10 mmol/L (4-12); Aspartate Amino Transferase 60 U/L (17-59); Bilirubin,Total 1.3 mg/dL (0.2-1.3); Blood Urea Nitrogen 39 mg/dL (9-20); Calcium 8.3 mg/dL (8.4-10.2); Carbon Dioxide 25 mmol/L (22-30); Chloride 99 mmol/L (98-107); Estimated CRCL calculation 56 ml/min; Estimated Glomerular Filt Rate > 60; Glucose 124 mg/dL (65-110); Potassium 3.6 mmol/L (3.4-5.0); Sodium 134 mmol/L (137-145)
[2024-07-19] MEDS: WARFARIN (*PBKC) 3 MG TABLET PO (16:43)
[2024-07-20] VITALS (13 sets, daily range): BP systolic 107–126; BP diastolic 74–97; PULSE 80–106; RESP 16–22; TEMP 36.2–36.6; O2SAT 90–100
[2024-07-20 05:32] LABS: Basophils Percent Auto 0.4 % (0.2-1.2); Eosinophils Absolute Auto 0.1 K/mm3 (0-0.3); Eosinophils Percent Auto 1.4 % (0-4.4); Hematocrit 52.5 % (42.0-52.0); Hemoglobin 17.4 g/dL (14.0-18.0); Immature Granulocyte Absolute 0.04 K/mm3 (0.00-0.031); Immature Granulocyte Percent A 0.5 % (0-0.5); Lymphocytes Absolute Auto 0.81 K/mm3 (0.9-3.2); Lymphocytes Percent Auto 10.4 % (18.3-44.2); Mean Corpuscular HGB Conc 33.1 g/dl (32-36); Mean Corpuscular Volume 99.4 fl (80-100); Mean Platelet Volume 11.5 fl (7.4-10.4); Monocytes Absolute Auto 0.7 K/mm3 (0.1-0.6); Monocytes Percent Auto 9.4 % (2.6-8.5); Neutrophils Absolute Auto 6.1 K/mm3 (1.3-6.7); Neutrophils Percent Auto 77.9 % (45.5-73.1); Platelet Count Result 161 k/mm3 (150-375); Red Blood Count 5.28 M/mm3 (4.6-6.20); Red Cell Distribution Width 14.9 % (11.5-14.5); White Blood Count 7.8 K/mm3 (4.5-10.0)
[2024-07-20 05:42] LABS: INR 2.2; Prothrombin Time 25.2 Seconds (11.1-14.7)
[2024-07-20 05:48] LABS: Alanine Aminotransferase 44 U/L (6-50); Albumin Level 3.7 g/dL (3.5-5.1); Alkaline Phosphatase 111 U/L (38-126); Anion Gap 10 mmol/L (4-12); Aspartate Amino Transferase 50 U/L (17-59); Bilirubin,Total 1.8 mg/dL (0.2-1.3); Blood Urea Nitrogen 38 mg/dL (9-20); Calcium 8.1 mg/dL (8.4-10.2); Carbon Dioxide 31 mmol/L (22-30); Chloride 95 mmol/L (98-107); Estimated CRCL calculation 50 ml/min; Estimated Glomerular Filt Rate > 60; Glucose 100 mg/dL (65-110); Potassium 3.2 mmol/L (3.4-5.0); Sodium 136 mmol/L (137-145)
[2024-07-20] MEDS: POTASSIUM CHLORIDE 20 MEQ ER TABLET 40 MEQ PO (10:11)
[2024-07-20] MEDS: METOPROLOL SUCCINATE EXT REL 50 MG TABCR PO (10:11)
--- NOTE | 2024-07-20 12:34 | PM.PNCARD ---
Progress Note: A&P Assessment and Plan (1) Atrial flutter with rapid ventricular response: Code(s): I48.92 - Unspecified atrial flutter Status: Acute Plan Persistent atrial fibrillation currently rate controlled. He had failed cardioversion. Plan Continue metoprolol XL 50 mg daily and warfarin Target INR 2-3 Patient can be discharged from cardiac standpoint Subjective Date/time seen: 07/20/24 12:34 Interval history: no acute events tele: A fib, rate controlled Review of Systems Review of Systems: All systems reviewed & are unremarkable except as noted in HPI and below Exam Const: General: comfortable and no acute distress Other: Pleasant elderly white male appearing his stated age resting comfortably HENMT: Mouth: Yes moist mucous membranes Eyes: Sclera: sclerae normal Neck: Neck: supple and no JVD Resp: Effort & Inspection: normal respiratory effort Auscultation: clear to auscultation bilaterally Cardio: Rhythm: abnormal rhythm irregularly irregular GI: Auscultation: normal bowel sounds Skin: General skin exam: normal color Neuro: Other: alert and responsive Extrem: Other: soft and warm with moderate soft pitting edema bilaterally and symmetrically. Objective Data Vital Signs Vital Signs: Vital Signs - 24 hr 07/19/24 14:00 07/19/24 14:00 07/19/24 15:50 Temperature 36.4 C L Pulse Rate 85 89 Respiratory Rate 20 Blood Pressure 106/76 106/80 Pulse Oximetry 99 Oxygen Delivery Oxygen Flow Rate 07/19/24 16:00 07/19/24 16:00 07/19/24 18:00 Temperature Pulse Rate 79 87 Respiratory Rate Blood Pressure Pulse Oximetry 98 Oxygen Delivery Nasal Cannula Oxygen Flow Rate 2 07/19/24 20:00 07/19/24 20:20 07/19/24 20:00 Temperature 36.7 C Pulse Rate 92 91 Respiratory Rate 16 Blood Pressure 102/82 Pulse Oximetry 97 Oxygen Delivery Room Air Oxygen Flow Rate 07/19/24 22:00 07/19/24 23:05 07/20/24 00:00 Temperature 36.3 C L Pulse Rate 94 90 98 Respiratory Rate 16 Blood Pressure 111/68 Pulse Oximetry 98 Oxygen Delivery Oxygen Flow Rate 07/20/24 00:00 07/20/24 02:00 07/20/24 03:50 Temperature Pulse Rate 90 Respiratory Rate Blood Pressure Pulse Oximetry Oxygen Delivery Room Air Room Air Oxygen Flow Rate 07/20/24 04:00 07/20/24 05:28 07/20/24 06:00 Temperature 36.6 C Pulse Rate 96 83 106 H Respiratory Rate 20 Blood Pressure 121/97 H Pulse Oximetry 98 Oxygen Delivery Oxygen Flow Rate 07/20/24 08:00 07/20/24 10:11 07/20/24 11:48 Temperature 36.4 C 36.3 C L Pulse Rate 93 80 102 H Respiratory Rate 16 20 Blood Pressure 111/74 111/83 Pulse Oximetry 100 92 Oxygen Delivery Oxygen Flow Rate Intake/Output Intake/Output: Intake & Output 07/17/24 07/18/24 07/19/24 07/20/24 23:59 23:59 23:59 23:59 Intake Total 1442.2 869.9 1292.2 320 Output Total 2450 1000 950 Balance -1007.8 -130.1 342.2 320 Meds/Results Medications: Active Medications Generic Name Dose Route Start Last Admin Trade Name Freq PRN Reason Stop Dose Admin Acetaminophen 650 mg 07/16/24 20:33 Acetaminophen 325 Mg Tablet PO Q4H PRN Mild Pain (1-3) or Fever Furosemide 40 mg 07/17/24 09:00 07/20/24 11:33 Furosemide Inj 40 Mg/4 Ml Vial IV PUSH Not Given DAILY [facility] Metoprolol Succinate 50 mg 07/19/24 09:45 07/20/24 10:11 Metoprolol Succinate Ext Rel 50 Mg Tabcr PO 50 mg QAM [facility] Administration Ondansetron HCl 4 mg 07/16/24 20:33 Ondansetron Inj 4 Mg/2 Ml Vial IV PUSH Q6H PRN Nausea And Vomiting Warfarin Sodium 3 mg 07/18/24 17:00 07/19/24 16:43 Warfarin (*Pbkc) 3 Mg Tablet PO 3 mg DAILY@1700 [facility] Administration Radiology Results: ITS Impressions Chest X-Ray 07/16/24 15:18 Impression: 1: Cardiomegaly with mild interstitial edema. Venous Doppler Study 07/16/24 15:59 IMPRESSION: 1. No deep venous thrombosis in either lower limb. Labs Labs: Laboratory Results - last 24 hr 07/20/24 05:26 WBC 7.8 RBC 5.28 Hgb 17.4 Hct 52.5 H MCV 99.4 MCH 33.0 MCHC 33.1 RDW 14.9 H Plt Count 161 MPV 11.5 H Immature Gran % (Auto) 0.5 Neut % (Auto) 77.9 H Lymph % (Auto) 10.4 L [place] % (Auto) 9.4 H Eos % (Auto) 1.4 Baso % (Auto) 0.4 Lymph # (Auto) 0.81 L [place] # (Auto) 0.7 H Eos # (Auto) 0.1 Baso # (Auto) 0.0 Abs Immat Gran (auto) 0.04 H Absolute Neuts (auto) 6.1 Absolute Nucleated RBC 0.000 Nucleated RBC % 0.0 PT 25.2 H INR 2.2 Sodium 136 L Potassium 3.2 L Chloride 95 L Carbon Dioxide 31 H Anion Gap 10 BUN 38 H Creatinine 0.90 Estim Creat Clear Calc 50 Estimated GFR > 60 Glucose 100 Calcium 8.1 L Total Bilirubin 1.8 H AST 50 ALT 44 Alkaline Phosphatase 111 Total Protein 7.0 Albumin 3.7
[2024-07-20] MEDS: FUROSEMIDE 40 MG TABLET PO (13:23)
--- NOTE | 2024-07-20 13:50 | P.PNIM_ITS ---
Progress Note: A&P Assessment and Plan (1) Acute exacerbation of CHF (congestive heart failure): Code(s): I50.9 - Heart failure, unspecified Status: Acute Assessment and Plan: * Acute on chronic. * Patient presented with shortness of breath, AFib RVR, 4+ pitting edema, anasarca, and fatigue. * Cardiology following. * Currently on Lasix PO 40 mg QD. * Venous Doppler study negative for DVT * Chest x-ray showing cardiomegaly with mild interstitial edema * Continue strict intake and output * Fluid restriction * Heart healthy diet * Daily weights (2) Atrial fibrillation with rapid ventricular response: Code(s): I48.91 - Unspecified atrial fibrillation Status: Acute Assessment and Plan: * Telemetry showing A-Fib with rate low 100's. * Patient yesterday underwent DC Cardioversion and converted to sinus on 2nd attempt. * Patient unfortunately went back to A-Flutter in the evening and maintains A- Fib now on tele. * Started on Metoprolol ER per cardiology. * Continue tele monitoring. * Continue Coumadin with daily INR. * INR 2.2 today. (3) Elevated troponin: Code(s): R79.89 - Other specified abnormal findings of blood chemistry Status: Acute Assessment and Plan: * Initial troponin 0.121> 0.157 * Likely demand ischemia from fluid overload. * No further w/u recommended. (4) Weakness: Code(s): R53.1 - Weakness Status: Acute Assessment and Plan: * PT and OT eval and treatment. * Consider rehab placement pending PT/OT eval. Time Spent With Patient Time with patient: 25 - 35 minutes Subjective Date/time seen: 07/20/24 13:50 Interval history: Patient presented to the hospital with shortness of breath and AFib with RVR which was found by his primary care physician. Patient is being followed up by the seat cover cutter and had DC cardioversion done by cardiology but went back to A- Flutter overnight. Patient is now on Metoprolol for rate control and will have chronic A-Fib per cardiology. Patient currently in A-Fib on telemetry. Calm on bedrest and denies any distressful symptoms but noted with generalized weakness. Family bedside and arrangements currently in place to transfer patient to rehab. Review of Systems Review of Systems: All systems reviewed & are unremarkable except as noted in HPI and below Constitutional: Constitutional: Reports as per HPI and Reports no additional constitutional complaints Eyes: Eyes: Reports as per HPI and Reports no additional eye complaints ENT: Reports system reviewed and no additional complaints, except as documented and Reports as per HPI Cardiovascular: Cardiovascular: Reports as per HPI and Reports no additional cardiovascular complaints Respiratory: Respiratory: Reports as per HPI and Reports no additional respiratory complaints Gastrointestinal: Gastrointestinal: Reports as per HPI and Reports no additional gastrointestinal complaints Genitourinary: Genitourinary: Reports no additional male genitourinary complaints and Reports as per HPI Musculoskeletal: Musculoskeletal: Reports no additional musculoskeletal complaints and Reports as per HPI Integumentary/Breasts: Skin/Breast: Reports system reviewed and no additional complaints, except as docu and Reports as per HPI Neurologic: Reports system reviewed and no additional complaints, except as documented and Reports as per HPI Psychiatric: Psychiatric: Reports no additional psychiatric complaints and Reports as per HPI Exam Narrative: General: Generalized muscle weakness but in no acute distress. Head: atraumatic, no encephalopathy Eyes: EOMI, PERRL, EOMI, icteria ENT: moist mucous membranes, nasal passages clear Neck: supple, Cardiac: Irregularly irregular, No murmurs. Respiratory: Diminished breath sounds, Gastrointestinal: soft, non-distended, non-tender, normoactive bowel sounds. Anasarca present Extremities: moves all extremities well, 3+ pitting edema to bilateral lower extremities, good ROM, strength 3/5 Skin: clean, dry, intact. No wounds or lesions. Neuro: Alert and oriented x4, cranial nerves intact, no neuro deficits. Psych: normal mood and affect, interactive Objective Data Vital Signs Vital Signs: Vital Signs - 24 hr 07/19/24 14:00 07/19/24 14:00 07/19/24 15:50 Temperature 97.5 F L Pulse Rate 85 89 Respiratory Rate 20 Blood Pressure 106/76 106/80 Pulse Oximetry 99 Oxygen Delivery Oxygen Flow Rate 07/19/24 16:00 07/19/24 16:00 07/19/24 18:00 Temperature Pulse Rate 79 87 Respiratory Rate Blood Pressure Pulse Oximetry 98 Oxygen Delivery Nasal Cannula Oxygen Flow Rate 2 07/19/24 20:00 07/19/24 20:20 07/19/24 20:00 Temperature 98.0 F Pulse Rate 92 91 Respiratory Rate 16 Blood Pressure 102/82 Pulse Oximetry 97 Oxygen Delivery Room Air Oxygen Flow Rate 07/19/24 22:00 07/19/24 23:05 07/20/24 00:00 Temperature 97.3 F L Pulse Rate 94 90 98 Respiratory Rate 16 Blood Pressure 111/68 Pulse Oximetry 98 Oxygen Delivery Oxygen Flow Rate 07/20/24 00:00 07/20/24 02:00 07/20/24 03:50 Temperature Pulse Rate 90 Respiratory Rate Blood Pressure Pulse Oximetry Oxygen Delivery Room Air Room Air Oxygen Flow Rate 07/20/24 04:00 07/20/24 05:28 07/20/24 06:00 Temperature 97.9 F Pulse Rate 96 83 106 H Respiratory Rate 20 Blood Pressure 121/97 H Pulse Oximetry 98 Oxygen Delivery Oxygen Flow Rate 07/20/24 08:00 07/20/24 10:11 07/20/24 11:48 Temperature 97.6 F 97.3 F L Pulse Rate 93 80 102 H Respiratory Rate 16 20 Blood Pressure 111/74 111/83 Pulse Oximetry 100 92 Oxygen Delivery Oxygen Flow Rate Intake/Output Intake/Output: Intake & Output 07/17/24 07/18/24 07/19/24 07/20/24 23:59 23:59 23:59 23:59 Intake Total 1442.2 869.9 1292.2 320 Output Total 2450 1000 950 Balance -1007.8 -130.1 342.2 320 Meds/Results Medications: Active Medications Generic Name Dose Route Start Last Admin Trade Name Freq PRN Reason Stop Dose Admin Acetaminophen 650 mg 07/16/24 20:33 Acetaminophen 325 Mg Tablet PO Q4H PRN Mild Pain (1-3) or Fever Furosemide 40 mg 07/17/24 09:00 07/20/24 11:33 Furosemide Inj 40 Mg/4 Ml Vial IV PUSH Not Given DAILY [facility] Metoprolol Succinate 50 mg 07/19/24 09:45 07/20/24 10:11 Metoprolol Succinate Ext Rel 50 Mg Tabcr PO 50 mg QAM [facility] Administration Ondansetron HCl 4 mg 07/16/24 20:33 Ondansetron Inj 4 Mg/2 Ml Vial IV PUSH Q6H PRN Nausea And Vomiting Warfarin Sodium 3 mg 07/18/24 17:00 07/19/24 16:43 Warfarin (*Pbkc) 3 Mg Tablet PO 3 mg DAILY@1700 [facility] Administration Radiology Results: ITS Impressions Chest X-Ray 07/16/24 15:18 Impression: 1: Cardiomegaly with mild interstitial edema. Venous Doppler Study 07/16/24 15:59 IMPRESSION: 1. No deep venous thrombosis in either lower limb. Labs Labs: Laboratory Results - last 24 hr 07/20/24 05:26 WBC 7.8 RBC 5.28 Hgb 17.4 Hct 52.5 H MCV 99.4 MCH 33.0 MCHC 33.1 RDW 14.9 H Plt Count 161 MPV 11.5 H Immature Gran % (Auto) 0.5 Neut % (Auto) 77.9 H Lymph % (Auto) 10.4 L [place] % (Auto) 9.4 H Eos % (Auto) 1.4 Baso % (Auto) 0.4 Lymph # (Auto) 0.81 L [place] # (Auto) 0.7 H Eos # (Auto) 0.1 Baso # (Auto) 0.0 Abs Immat Gran (auto) 0.04 H Absolute Neuts (auto) 6.1 Absolute Nucleated RBC 0.000 Nucleated RBC % 0.0 PT 25.2 H INR 2.2 Sodium 136 L Potassium 3.2 L Chloride 95 L Carbon Dioxide 31 H Anion Gap 10 BUN 38 H Creatinine 0.90 Estim Creat Clear Calc 50 Estimated GFR > 60 Glucose 100 Calcium 8.1 L Total Bilirubin 1.8 H AST 50 ALT 44 Alkaline Phosphatase 111 Total Protein 7.0 Albumin 3.7 Quality VTE Prophylaxis VTE prophylaxis: pharmacologic ordered Plan of care discussed in detail with patient and 2 sons in the room and they're all in agreement, including eval for rehab placement.
--- NOTE | 2024-07-20 17:15 | PC.NURSE ---
This patient, Juanito Sauceda, was received from [[id number] ] on 07/20/24 at 1702. Patient/family oriented to unit policies and routines
--- NOTE | 2024-07-20 17:18 | PC.NURSE ---
This patient, Juanito Sauceda, was transferred to [[id number] ] on 07/20/24 at 1655. Personal belongings sent with patient. Report given to Walter CANAS. Appropriate documentation sent with patient.
[2024-07-20] MEDS: WARFARIN (*PBKC) 3 MG TABLET PO (17:23)
[2024-07-21 05:59] VITALS: BP 114/70; PULSE 79; RESP 20; TEMP 36.4; O2SAT 100
[2024-07-21 07:11] LABS: Basophils Percent Auto 0.4 % (0.2-1.2); Eosinophils Absolute Auto 0.1 K/mm3 (0-0.3); Eosinophils Percent Auto 1.5 % (0-4.4); Hematocrit 50.5 % (42.0-52.0); Hemoglobin 16.8 g/dL (14.0-18.0); Immature Granulocyte Absolute 0.03 K/mm3 (0.00-0.031); Immature Granulocyte Percent A 0.4 % (0-0.5); Lymphocytes Absolute Auto 0.82 K/mm3 (0.9-3.2); Lymphocytes Percent Auto 11.1 % (18.3-44.2); Mean Corpuscular HGB Conc 33.3 g/dl (32-36); Mean Corpuscular Hemoglobin 33.8 pg (26-34); Mean Corpuscular Volume 101.6 fl (80-100); Mean Platelet Volume 12.3 fl (7.4-10.4); Monocytes Absolute Auto 0.8 K/mm3 (0.1-0.6); Monocytes Percent Auto 11.1 % (2.6-8.5); Neutrophils Absolute Auto 5.6 K/mm3 (1.3-6.7); Neutrophils Percent Auto 75.5 % (45.5-73.1); Platelet Count Result 153 k/mm3 (150-375); Red Blood Count 4.97 M/mm3 (4.6-6.20); Red Cell Distribution Width 14.8 % (11.5-14.5); White Blood Count 7.4 K/mm3 (4.5-10.0)
[2024-07-21 07:15] VITALS: O2SAT 92
[2024-07-21 07:17] LABS: INR 2.6; Prothrombin Time 28.4 Seconds (11.1-14.7)
[2024-07-21 07:40] LABS: Alanine Aminotransferase 41 U/L (6-50); Albumin Level 3.3 g/dL (3.5-5.1); Alkaline Phosphatase 109 U/L (38-126); Anion Gap 7 mmol/L (4-12); Aspartate Amino Transferase 52 U/L (17-59); Blood Urea Nitrogen 39 mg/dL (9-20); Calcium 7.9 mg/dL (8.4-10.2); Carbon Dioxide 31 mmol/L (22-30); Chloride 97 mmol/L (98-107); Estimated CRCL calculation 50 ml/min; Estimated Glomerular Filt Rate > 60; Glucose 93 mg/dL (65-110); Potassium 3.7 mmol/L (3.4-5.0); Sodium 135 mmol/L (137-145)
[2024-07-21 08:35] VITALS: PULSE 79
[2024-07-21] MEDS: METOPROLOL SUCCINATE EXT REL 50 MG TABCR PO (08:35)
--- NOTE | 2024-07-21 12:38 | P.DS_ITS ---
DS: Admitting Diagnosis Discharge Date 07/21/24 Admitting Diagnosis Worsening shortness of breath DS: Discharge Diagnosis Discharge Diagnosis (1) Acute exacerbation of CHF (congestive heart failure): Code(s): I50.9 - Heart failure, unspecified Status: Acute Assessment and Plan: * Acute on chronic. * Stabilized by IV and PO lasix. * Patient was not on diuretics before but will be discharged on Lasix 40 mg QD. * Cardiology assisted in stabilizing the patient. * Venous Doppler pierre. LE were negative for DVT * Patient to continue strict intake and output with daily weight. * Continue fluid restriction. * Continue Heart healthy diet. (2) Atrial fibrillation with rapid ventricular response: Code(s): I48.91 - Unspecified atrial fibrillation Status: Acute Assessment and Plan: * Patient underwent DC Cardioversion and converted to sinus on 2nd attempt. * Unfortunately patient went back to A-Flutter/A-fib and will chronically remain in A-Fib per movie shot cameraman. * Patient started on Metoprolol ER for rate control. * Patient to continue Coumadin with daily INR. (3) Elevated troponin: Code(s): R79.89 - Other specified abnormal findings of blood chemistry Status: Acute Assessment and Plan: * Initial troponin on admission was 0.121> 0.157 * Likely demand ischemia from fluid overload and no further work-up recommended by the movie shot cameraman. (4) Weakness: Code(s): R53.1 - Weakness Status: Acute Assessment and Plan: * Patient had PT/OT treatment inpatient and has been recommended for inpatient rehab placement. * Patient to be transferred to inpatient rehab placement. DS: Summary Hospital Course Hospital Course: Patient was admitted to the hospital with worsening SOB and A-Fib RVR that was discovered at his primary physician's office. Patient was noted to be in CHF exacerbation that was stabilized with lasix, fluid restrictions, strict I & O's and heart healthy diet. With regards to patient's A-Fib RVR, he undersent DC Cardioversion and converted to SR on 2nd attempt. Unfortunately he went back to A-Flutter overnight and has maintained A-Fib since then. The patient will be on chronic A-Fib per movie shot cameraman with Metoprolol XL for rate control. He will continue with Coumadin for chronic anticoagulation. Patient was also noted with weakness and underwent PT/OT inpatient, with the patient being discharged to inpatient rehab for continued conditioning. Patient is medically stable to transfer to rehab and is in no acute distress prior to discharge. Status at Discharge Functional status at discharge: uses cane/walker Overall status at discharge: patient is progressing back to baseline Time Spent with Patient Time attestation: Total time spent providing and/or coordinating discharge services: Time spent: Greater than 30 minutes Exam Narrative: General: Generalized muscle weakness but in no acute distress. Head: atraumatic, no encephalopathy Eyes: EOMI, PERRL, EOMI, icteria ENT: moist mucous membranes, nasal passages clear Neck: supple, Cardiac: Irregularly irregular, No murmurs. Respiratory: Diminished breath sounds, Gastrointestinal: soft, non-distended, non-tender, normoactive bowel sounds. Anasarca present Extremities: moves all extremities well, 2+ pitting edema to bilateral lower extremities, good ROM, strength 3/5 Skin: clean, dry, intact. No wounds or lesions. Neuro: Alert and oriented x4, cranial nerves intact, no neuro deficits. Psych: normal mood and affect, interactive DS: Data Data Completed and Pending Labs on day of discharge: Labs from last 24 hours 07/21/24 06:33 WBC 7.4 RBC 4.97 Hgb 16.8 Hct 50.5 MCV 101.6 H MCH 33.8 MCHC 33.3 RDW 14.8 H Plt Count 153 MPV 12.3 H Immature Gran % (Auto) 0.4 Neut % (Auto) 75.5 H Lymph % (Auto) 11.1 L [place] % (Auto) 11.1 H Eos % (Auto) 1.5 Baso % (Auto) 0.4 Lymph # (Auto) 0.82 L [place] # (Auto) 0.8 H Eos # (Auto) 0.1 Baso # (Auto) 0.0 Abs Immat Gran (auto) 0.03 Absolute Neuts (auto) 5.6 Absolute Nucleated RBC 0.000 Nucleated RBC % 0.0 PT 28.4 H INR 2.6 Sodium 135 L Potassium 3.7 Chloride 97 L Carbon Dioxide 31 H Anion Gap 7 BUN 39 H Creatinine 0.90 Estim Creat Clear Calc 50 Estimated GFR > 60 Glucose 93 Calcium 7.9 L Total Bilirubin 2.0 H AST 52 ALT 41 Alkaline Phosphatase 109 Total Protein 7.0 Albumin 3.3 L Discharge Plan Discharge Attending physician on discharge: Bogdan Philip Consulting providers: Carlos Ivan Discharging Clinician: Shonna Purcell Anticipated Discharge Date/Time: 07/21/24 13:10 Patient Disposition: Home Health Service Activity: as tolerated Diet: heart healthy Discharge Instructions: afib Per Care Coordination: [facility] [phone] has been arranged for physical and occupational therapy, they will contact you regarding your first visit. Patient Instructions: Antibiotic Form, Warfarin (By mouth), Heart Failure (GEN), A-fib (Atrial Fibrillation) (DC), Pain Management (DC) Stand Alone Forms: General Discharge Information Follow-up/Referrals: Yaritza Thayer MD [Primary Care Provider] - 3 Weeks Discharge Medications: New metoprolol succinate 50 mg capsule,sprinkle,ER 24hr 50 mg PO DAILY Qty: 10 0RF furosemide [Lasix] 40 mg tablet 40 mg PO DAILY Qty: 10 0RF potassium chloride 20 mEq tablet extended release 20 meq PO DAILY Qty: 10 0RF Continued warfarin 3 mg tablet 3 mg PO HS Date of admission: 07/16/24 17:20 Primary Care Provider: Yaritza Thayer Admitting Provider: Alexis Palencia Attending physician on admission: Alexis Palencia Condition: Stable Quality VTE Prophylaxis VTE prophylaxis: pharmacologic ordered Hospitalist MIPS Heart Failure (Exclusion) Patient has history of Heart Transplant or Left Ventricular Assistive Device?: No IF YES, STOP HERE Heart Failure (Qualifier) Patient has current or prior documentation of LVEF less than or equal to 40%, or mod/servere depressed LVSF?: Yes IF NO, STOP HERE If Yes, Heart Failure (Qualifier) Patient was prescribed or already taking an Angiotensin-Converting Enzyme (CHERYL) Inhibitor, or Antiotensin Receptor Moses (ARB): No Patient was prescribed or already taking bisoprolol, carvedilol, or sustained release metoprolol succinate: Yes If Medications not prescribed/taking Reason patient not prescribed/taking CHERYL or ARB: Medical reasons: allergy, intolerance, contraindication or other (Low BP)
== END 2024-07-21 13:35 | DRG 291 ==
LOC: ANHED 19:35 → ANHIMU 20:27 → ANH3MEDSUR 07-20 16:16
PROVIDERS: Emergency Medicine; Nurse Practitioner; Nurse Practitioner Acute Care; Specialist; Admitting Provider Internal Medicine; Emergency Provider Student in an Organized Health Care Education/Training Program; PCP Family Medicine; Visit Provider Nurse Practitioner Adult Health
PROC: 5A2204Z Restoration of Cardiac Rhythm, Single (ICD-10-PCS; principal; 2024-07-18 14:00)
DX: I11.0 Hypertensive heart disease with heart failure (principal); I50.23 Acute on chronic systolic (congestive) heart failure; I24.89 Other forms of acute ischemic heart disease; I48.92 Unspecified atrial flutter; I48.20 Chronic atrial fibrillation, unspecified; E78.5 Hyperlipidemia, unspecified; R53.1 Weakness; Z20.822 Contact with and (suspected) exposure to COVID-19; Z79.01 Long term (current) use of anticoagulants; Z85.46 Personal history of malignant neoplasm of prostate; Z87.891 Personal history of nicotine dependence
CPT/HCPCS: 36415; 71045; 80053; 83690; 83735; 83880; 84132; 84484; 85025; 85380; 85610; 85730; 87636; 92960; 93005; 93970; 96365; 96375; 97110; 97162; 97165; 97530; 97535; 99285; A9270; J0282; J1160; J1940; J2704; J7040

== ENCOUNTER 2024-08-09 08:00 | Outpatient (CLI) | payer MEDICARE, OTHER, SELFPAY ==
[2024-08-09 08:10] VITALS: PULSE 84; O2SAT 86
[2024-08-09 08:15] VITALS: PULSE 86; O2SAT 87
[2024-08-09 08:20] VITALS: PULSE 89; O2SAT 92
[2024-08-09 08:40] VITALS: PULSE 106; O2SAT 92
[2024-08-09 08:45] VITALS: PULSE 85; O2SAT 92
--- NOTE | 2024-08-09 08:51 | ECHO_ITS ---
Patient Info Name: Juanito Sauceda Age: 89 years : 1935 Gender: Male Ht: 69 in Wt: 200 lbs BSA: 2.12 m2 HR: 101 bpm BP: 152 / 92 mmHg Heart Rhythm: Atrial Fibrillation Technical Quality: Good Exam Date: 08/09/2024 9:29 AM Exam Location: Echo Lab Patient Status: Outpatient Admit Date: 08/09/2024 Staff Ordering Physician: Yaritza Thayer MD Take Off Worker: Daljit Decker RDCS Attending Provider: Yaritza Thayer MD Referring Physician: Jeovany MEHTA; Exam Type: CA echo doppler color flow Study Info Indications - HEART FAILURE, UNSP Complete two-dimensional, color flow and Doppler transthoracic echocardiogram is performed. Summary 1. Complete two-dimensional, color flow and Doppler transthoracic echocardiogram is performed. 2. Left ventricular enlargement with severe global hypokinesia and ejection fraction 20-25%. 3. Severe biatrial dilation. 4. Severe, low gradient aortic stenosis valve area 0.7. 5. Atrial fibrillation. Left Ventricle Left ventricular chamber dimension is moderately enlarged. Left ventricular systolic function is severely reduced, estimated at 20-25%. The left ventricular diastolic function is indeterminate. Right Ventricle Right ventricular chamber dimension is mildly enlarged. Left Atria Left atrial chamber dimension is moderately enlarged. Right Atria Right atrial chamber dimension is moderately enlarged. Aortic Valve The aortic valve is trileaflet. There is moderate aortic valve sclerosis. There is severe aortic valve stenosis. Pulmonic Valve The pulmonic valve is not well visualized. Mitral Valve The mitral valve has normal leaflets. There is mild mitral valve regurgitation. Tricuspid Valve The tricuspid valve leaflets are normal. There is mild tricuspid valve regurgitation. Pericardium/Pleural The pericardium appears normal. Aorta The aortic root size at the sinus of Valsalva is normal. Left Ventricular Outflow Tract Name Value Normal LVOT Doppler LVOT Peak Gradient 0 mmHg LVOT Mean Gradient 0 mmHg LVOT VTI 6 cm LVOT VTI/AV VTI Ratio 0.2 Pulmonic Valve Name Value Normal PV Doppler PV Peak Gradient 5 mmHg Mitral Valve Name Value Normal MV Doppler MV Decel Ward 280 cm/s2 MV PHT 65 ms MV Area (PHT) 3.4 cm2 4.0-5.0 MV Regurgitation Doppler MR Peak Gradient 45 mmHg MV Diastolic Function MV E Peak Velocity 63 cm/s
--- NOTE | 2024-08-09 09:00 | HOMEO2EVAL ---
Evaluation was performed at [facility] Home Oxygen Evaluation RC: Home Oxygen (O2) Evaluation Start: 08/09/24 08:54 Freq: Status: Active Protocol: RPE Activity Type Activity Date Activity User E-sign Co-sign Detail Recorded Client Recorded Date Recorded By Document 08/09/24 08:10 [email or web address] 08/09/24 08:57 PKH Document 08/09/24 08:15 [email or web address] 08/09/24 08:57 PKH Document 08/09/24 08:20 [email or web address] [email or web address] 08/09/24 08:57 PKH Document 08/09/24 08:40 [email or web address] [email or web address] 08/09/24 08:57 PKH Document 08/09/24 08:45 [email or web address] [email or web address] 08/09/24 08:57 PKH 08/09/24 08/09/24 08/09/24 08:10 08:15 08:20 Home O2 Evaluation [Oxygen] -Test Phase Resting Resting Resting -Oxygen Delivery Room Air Nasal Cannula Nasal Cannula -Oxygen Flow Rate (L/min) 1 2 [Pulse Oximetry] -Pulse Oximetry (90-100 %) 86 L 87 L 92 [Pulse Rate] -Pulse Rate (60-100 beats/min) 84 86 89 [Charges] -Evaluation Charges O2 Evaluation by Pulmonary 08/09/24 08/09/24 08:40 08:45 Home O2 Evaluation [Oxygen] -Test Phase Exercise Resting -Oxygen Delivery Nasal Cannula Nasal Cannula -Oxygen Flow Rate (L/min) 2 2 [Pulse Oximetry] -Pulse Oximetry (90-100 %) 92 92 [Pulse Rate] -Pulse Rate (60-100 beats/min) 106 H 85 [Charges] -Evaluation Charges
== END 2024-08-09 08:01 | disposition home or self-care (01) ==
PROVIDERS: PCP Family Medicine; Visit Provider Family Medicine
DX: I50.9 Heart failure, unspecified (principal); I48.91 Unspecified atrial fibrillation
CPT/HCPCS: 93306; 94618

== ENCOUNTER 2024-09-04 15:56 | Outpatient (NON) | payer MEDICARE, OTHER, SELFPAY ==
[2024-09-04 16:28] LABS: INR 3.7; Prothrombin Time 37.3 Seconds (11.1-14.7)
== END 2024-09-04 15:57 | disposition home or self-care (01) ==
PROVIDERS: PCP Family Medicine; Visit Provider Specialist
DX: I50.9 Heart failure, unspecified (principal); I48.91 Unspecified atrial fibrillation; Z79.01 Long term (current) use of anticoagulants
CPT/HCPCS: 85610

== ENCOUNTER 2024-10-09 10:46 | Outpatient (CLI) | payer MEDICARE, OTHER, SELFPAY ==
[2024-10-09 11:50] LABS: INR 4.3; Prothrombin Time 42.2 Seconds (11.1-14.7)
== END 2024-10-09 10:47 | disposition home or self-care (01) ==
PROVIDERS: PCP Family Medicine; Visit Provider Internal Medicine Cardiovascular Disease
DX: I48.91 Unspecified atrial fibrillation (principal)
CPT/HCPCS: 36415; 85610